=== PATIENT | male | born 1960 | race Caucasian/White ===

== ENCOUNTER 2021-12-21 20:35 | Inpatient (IN) ==
[2021-12-21] MEDS ORDERED: PANTOPRAZOLE 40 MG VIAL IV STA (21:12)
[2021-12-21] MEDS ORDERED: ONDANSETRON 4 MG/2 ML VIAL IV STA (21:12)
[2021-12-21] MEDS ORDERED: SODIUM CHLORIDE 0.9% 500 ML IV STA (21:12)
[2021-12-21 21:31] LABS: Basophils # 0.1 10*3/uL (0.0-0.2); Basophils % 0.6 % (0.0-0.8); Eosinophils # 0.1 10*3/uL (0.0-0.87); Eosinophils % 1.5 % (0.00-10.9); Hematocrit 39.6 VOL% (42.0-52.0); Hemoglobin 13.5 GM/DL (14.0-18.0); Immature Granulocytes % 0.6 %; Immature Granulocytes Absolute 0.05 #; Lymphocytes # 1.2 10*3/uL (1.4-4.0); Lymphocytes % 15.4 % (21.2-54.2); Mean Corpuscular HGB Conc 34.1 GM/DL (32-36); Mean Corpuscular Volume 85.7 FL (87-102); Mean Platelet Volume 9.5 FL (9.6-12.0); Monocytes # 0.9 10*3/uL (0.11-0.8); Monocytes % 11.8 % (1.7-12.7); Neutrophils % 70.1 % (38.7-73.9); Platelet Count 280 T/CUMM (130-400); Red Blood Count 4.62 MC/CUMM (3.8-5.5); Red Cell Distribution Width 13.2 % (9.3-17.3); White Blood Count 7.9 T/CUMM (4-12)
[2021-12-21 21:54] LABS: Alanine Aminotransferase 24 U/L (16-61); Alkaline Phosphatase 95 U/L (45-117); Amylase 50 U/L (25-115); Aspartate Amino Transferase 18 U/L (0-37); Blood Urea Nitrogen 23 MG/DL (7-18); Calcium 8.7 MG/DL (8.5-10.1); Carbon Dioxide 25 MMOL/L (21-32); Chloride 107 MMOL/L (98-107); Glucose 115 MG/DL (74-106); Osmolality,Calculated 283.4 MOS/KG (273-304); Potassium 4.2 MMOL/L (3.5-5.1); Sodium 140 MMOL/L (136-145); Total Protein 6.1 G/DL (6.4-8.2)
[2021-12-21] MEDS ORDERED: LACTATED RINGERS 1,000 ML IV ONE (22:31)
[2021-12-21 22:36] LABS: Bacteria,Urine Occasional /HPF (Few); Hyaline Casts,Urine 4 /LPF (0-3); Mucus,Urine Few /LPF (Occasional); RBC,Urine <1 /HPF (0-4)
[2021-12-21 22:38] LABS: Bilirubin,Urine Small mg/dL (Negative); Blood, Urine Negative (Negative); Glucose,Urine (UA) Trace mg/dL (Negative); Ketones,Urine Negative (Negative); Nitrite,Urine Negative (Negative); Protein,Urine 100 mg/dL (Negative); Urine Appearance Clear (Clear); Urine Color Yellow (Yellow); Urine Specific Gravity > 1.030 (1.001-1.035); Urine Urobilinogen 0.2 eU/dL (<2.0); Urine pH 5.5 (4.5-8.0)
[2021-12-22 00:09] LABS: Basophils % 0.5 % (0.0-0.8); Eosinophils # 0.1 10*3/uL (0.0-0.87); Eosinophils % 1.4 % (0.00-10.9); Hematocrit 30.6 VOL% (42.0-52.0); Hemoglobin 10.2 GM/DL (14.0-18.0); Immature Granulocytes % 0.7 %; Immature Granulocytes Absolute 0.04 #; Lymphocytes # 0.8 10*3/uL (1.4-4.0); Lymphocytes % 13.5 % (21.2-54.2); Mean Corpuscular HGB Conc 33.3 GM/DL (32-36); Mean Corpuscular Volume 86.4 FL (87-102); Mean Platelet Volume 9.7 FL (9.6-12.0); Monocytes # 0.7 10*3/uL (0.11-0.8); Monocytes % 12.3 % (1.7-12.7); Neutrophils % 71.6 % (38.7-73.9); Platelet Count 207 T/CUMM (130-400); Red Blood Count 3.54 MC/CUMM (3.8-5.5); Red Cell Distribution Width 13.2 % (9.3-17.3); White Blood Count 5.6 T/CUMM (4-12)
[2021-12-22] MEDS ORDERED: diphenhydrAMINE CAP 25 MG CAPSULE PO PRN (00:15)
[2021-12-22] MEDS ORDERED: hydrALAZINE 20 MG/1 ML VIAL IV PRN (00:15)
[2021-12-22] MEDS ORDERED: ZALEPLON 5 MG CAPSULE PO PRN (00:15)
[2021-12-22] MEDS ORDERED: NICOTINE 21 MG/24 HR PATCH TRANSDERM PRN (00:15)
[2021-12-22] MEDS ORDERED: GLUCAGON 1 MG VIAL IM PRN (00:15)
[2021-12-22] MEDS ORDERED: DEXTROSE 10% 250 ML BAG IV PRN (00:15)
[2021-12-22] MEDS: PANTOPRAZOLE INJ 200 MG in SODIUM CHLORIDE 0.9% 250 ML IV SCH ×2 (00:43→15:36)
[2021-12-22] MEDS: ONDANSETRON 4 MG/2 ML VIAL IV PRN ×2 (03:06→17:28)
[2021-12-22] MEDS: SODIUM CHLORIDE 0.9% 1,000 ML IV SCH ×2 (03:45→15:45)
[2021-12-22 04:38] LABS: Basophils % 0.8 % (0.0-0.8); Eosinophils # 0.1 10*3/uL (0.0-0.87); Eosinophils % 1.6 % (0.00-10.9); Hematocrit 30.4 VOL% (42.0-52.0); Hemoglobin 10.1 GM/DL (14.0-18.0); Immature Granulocytes % 0.4 %; Immature Granulocytes Absolute 0.02 #; Lymphocytes # 1.4 10*3/uL (1.4-4.0); Lymphocytes % 27.2 % (21.2-54.2); Mean Corpuscular HGB Conc 33.2 GM/DL (32-36); Mean Corpuscular Volume 88.1 FL (87-102); Mean Platelet Volume 10.1 FL (9.6-12.0); Monocytes # 0.6 10*3/uL (0.11-0.8); Monocytes % 12.3 % (1.7-12.7); Neutrophils % 57.7 % (38.7-73.9); Platelet Count 298 T/CUMM (130-400); Red Blood Count 3.45 MC/CUMM (3.8-5.5); Red Cell Distribution Width 13.4 % (9.3-17.3); White Blood Count 5.1 T/CUMM (4-12)
[2021-12-22 05:00] LABS: Calcium 7.7 MG/DL (8.5-10.1); Osmolality,Calculated 285.5 MOS/KG (273-304); Potassium 4.9 MMOL/L (3.5-5.1)
[2021-12-22 05:47] LABS: Sedimentation Rate-Westergren 29 MM/HR (0-20)
[2021-12-22] MEDS ORDERED: SODIUM CHLORIDE 0.9% 1,000 ML IV ONE (06:17)
[2021-12-22] MEDS ORDERED: LACTATED RINGERS 1,000 ML IV SCH (07:37)
[2021-12-22] MEDS ORDERED: LIDOCAINE 2% 5 ML VIAL ONE (08:24)
[2021-12-22] MEDS ORDERED: propofoL 200 MG/20 ML VIAL IV ONE (08:24)
[2021-12-22] MEDS ORDERED: SEVOFLURANE 1 UNIT/15 MINUTE INH ONE (09:02)
[2021-12-22] MEDS ORDERED: PHENYLEPHRINE 1 MG/10 ML SYRINGE IV ONE (09:02)
[2021-12-22] MEDS ORDERED: LABETALOL 20 MG/4 ML SYRINGE IV ONE (09:08)
[2021-12-22] MEDS ORDERED: SODIUM CHLORIDE 0.9% 1,000 ML IV PRN ×3 (10:26→15:42)
[2021-12-22] MEDS ORDERED: MORPHINE 2 MG/1 ML SYRINGE IV ONE (15:15)
[2021-12-22 15:36] LABS: Basophils % 0.1 % (0.0-0.8); Eosinophils % 0.3 % (0.00-10.9); Immature Granulocytes % 1.3 %; Immature Granulocytes Absolute 0.09 #; Lymphocytes # 2.2 10*3/uL (1.4-4.0); Mean Corpuscular Volume 90.5 FL (87-102); Mean Platelet Volume 10.1 FL (9.6-12.0); Monocytes # 0.5 10*3/uL (0.11-0.8); Monocytes % 6.7 % (1.7-12.7); Neutrophils % 59.6 % (38.7-73.9); Platelet Count 187 T/CUMM (130-400); Red Blood Count 1.69 MC/CUMM (3.8-5.5); Red Cell Distribution Width 13.5 % (9.3-17.3); White Blood Count 6.8 T/CUMM (4-12)
[2021-12-22 15:40] LABS: Hematocrit 15.3 VOL% (42.0-52.0); Hemoglobin 4.9 GM/DL (14.0-18.0)
[2021-12-22] MEDS: HYDROCORTISONE 100 MG VIAL IV SCH ×2 (15:47→21:56)
[2021-12-22 15:59] LABS: Alanine Aminotransferase 16 U/L (16-61); Albumin 1.4 G/DL (3.4-5.0); Alkaline Phosphatase 41 U/L (45-117); Aspartate Amino Transferase 18 U/L (0-37); Bilirubin,Total < 0.39 MG/DL (0.20-1.00); Blood Urea Nitrogen 42 MG/DL (7-18); Calcium 6.7 MG/DL (8.5-10.1); Carbon Dioxide 17 MMOL/L (21-32); Chloride 112 MMOL/L (98-107); Glucose 325 MG/DL (74-106); Osmolality,Calculated 304.3 MOS/KG (273-304); Potassium 4.4 MMOL/L (3.5-5.1); Sodium 141 MMOL/L (136-145); Total Protein 3.1 G/DL (6.4-8.2)
[2021-12-22] MEDS ORDERED: DIGOXIN 0.5 MG/2 ML AMP IV ONE ×2 (17:42→18:00)
[2021-12-22] MEDS ORDERED: METOPROLOL TARTRATE 5 MG/5 ML VIAL IV ONE (19:30)
[2021-12-22] MEDS ORDERED: CALCIUM GLUCONATE RIDER 1,000 MG/50 ML PREMIX IV ONE (19:30)
[2021-12-22 20:47] LABS: Hematocrit 34.4 VOL% (42.0-52.0); Hemoglobin 12.1 GM/DL (14.0-18.0)
[2021-12-23 00:35] LABS: Hematocrit 30.1 VOL% (42.0-52.0); Hemoglobin 10.4 GM/DL (14.0-18.0)
[2021-12-23] MEDS: SODIUM CHLORIDE 0.9% 1,000 ML IV SCH ×3 (02:23→23:49)
[2021-12-23] MEDS: PANTOPRAZOLE INJ 200 MG in SODIUM CHLORIDE 0.9% 250 ML IV SCH ×2 (02:58→23:49)
[2021-12-23 04:39] LABS: Basophils % 0.1 % (0.0-0.8); Hematocrit 30.2 VOL% (42.0-52.0); Hemoglobin 10.1 GM/DL (14.0-18.0); Immature Granulocytes Absolute 0.11 #; Lymphocytes % 8.9 % (21.2-54.2); Mean Corpuscular HGB Conc 33.4 GM/DL (32-36); Mean Corpuscular Volume 89.3 FL (87-102); Mean Platelet Volume 10.2 FL (9.6-12.0); Monocytes # 0.5 10*3/uL (0.11-0.8); Platelet Count 148 T/CUMM (130-400); Red Blood Count 3.38 MC/CUMM (3.8-5.5); Red Cell Distribution Width 14.6 % (9.3-17.3); White Blood Count 11.5 T/CUMM (4-12)
[2021-12-23 05:00] LABS: Calcium 7.3 MG/DL (8.5-10.1); Osmolality,Calculated 287.5 MOS/KG (273-304); Potassium 5.1 MMOL/L (3.5-5.1)
[2021-12-23] MEDS: HYDROCORTISONE 100 MG VIAL IV SCH ×4 (05:25→22:51)
[2021-12-23] MEDS ORDERED: MAGNESIUM SULF RIDER 2 GM/50 ML PREMIX IV ONE (07:53)
[2021-12-23] MEDS ORDERED: fentaNYL 100 MCG/2 ML VIAL IV ONE (08:15)
[2021-12-23] MEDS ORDERED: MIDAZOLAM 2 MG/2 ML VIAL IV ONE (08:15)
[2021-12-23] MEDS ORDERED: DIAZEPAM 5 MG TABLET PO ONE (08:15)
[2021-12-23] MEDS ORDERED: VANCOMYCIN INJ 1,000 MG in SODIUM CHLORIDE 0.9% 250 ML IV ONE (08:15)
[2021-12-23] MEDS ORDERED: SODIUM CHLORIDE 0.45% 1,000 ML IV SCH (08:30)
[2021-12-23] MEDS ORDERED: HEPARIN/NACL 0.9% 2 UNITS/ML 6,000 UNIT/3,000 ML BAG IV ONE (09:12)
[2021-12-23] MEDS ORDERED: DEXMEDETOMIDINE 200 MCG/2 ML VIAL ONE (09:20)
[2021-12-23] MEDS ORDERED: MIDAZOLAM 2 MG/2 ML VIAL ONE (12:07)
[2021-12-23] MEDS ORDERED: fentaNYL 100 MCG/2 ML VIAL ONE (12:07)
[2021-12-23] MEDS: MORPHINE 2 MG/1 ML SYRINGE IV PRN (12:52)
[2021-12-23 14:53] LABS: Hematocrit 26.9 VOL% (42.0-52.0); Hemoglobin 9.3 GM/DL (14.0-18.0)
[2021-12-23 17:05] LABS: Folate 6.27 NG/ML (5.38-24.0); Vitamin B12 275 PG/ML (211-911)
[2021-12-23 19:49] LABS: Hematocrit 25.8 VOL% (42.0-52.0); Hemoglobin 8.9 GM/DL (14.0-18.0)
[2021-12-24 02:18] LABS: Basophils % 0.1 % (0.0-0.8); Hematocrit 24.6 VOL% (42.0-52.0); Hemoglobin 8.4 GM/DL (14.0-18.0); Immature Granulocytes % 0.7 %; Immature Granulocytes Absolute 0.07 #; Lymphocytes # 0.8 10*3/uL (1.4-4.0); Lymphocytes % 7.2 % (21.2-54.2); Mean Corpuscular HGB Conc 34.1 GM/DL (32-36); Mean Corpuscular Volume 87.2 FL (87-102); Mean Platelet Volume 9.8 FL (9.6-12.0); Monocytes # 0.3 10*3/uL (0.11-0.8); Monocytes % 2.6 % (1.7-12.7); Neutrophils % 89.4 % (38.7-73.9); Platelet Count 137 T/CUMM (130-400); Red Blood Count 2.82 MC/CUMM (3.8-5.5); Red Cell Distribution Width 14.4 % (9.3-17.3); White Blood Count 10.4 T/CUMM (4-12)
[2021-12-24 02:33] LABS: Calcium 7.4 MG/DL (8.5-10.1); Osmolality,Calculated 288.3 MOS/KG (273-304); Potassium 4.3 MMOL/L (3.5-5.1)
[2021-12-24] MEDS: HYDROCORTISONE 100 MG VIAL IV SCH ×4 (05:05→21:31)
[2021-12-24] MEDS ORDERED: SODIUM CHLORIDE 0.9% 1,000 ML IV PRN (06:56)
[2021-12-24 07:49] LABS: Hematocrit 22.1 VOL% (42.0-52.0); Hemoglobin 7.4 GM/DL (14.0-18.0)
[2021-12-24] MEDS ORDERED: ETOMIDATE 20 MG/10 ML VIAL IV ONE (08:59)
[2021-12-24] MEDS ORDERED: LACTATED RINGERS 1,000 ML IV ONE ×2 (09:00→10:00)
[2021-12-24] MEDS ORDERED: MIDAZOLAM 2 MG/2 ML VIAL IV ONE (09:00)
[2021-12-24] MEDS ORDERED: SUCCINYLCHOLINE 200 MG/10 ML VIAL ONE (09:00)
[2021-12-24] MEDS: ETOMIDATE 20 MG/10 ML VIAL IV ONE (09:01)
[2021-12-24] MEDS: NOREPINEPHRINE 8 MG in SODIUM CHLORIDE 0.9% 242 ML IV PRN ×2 (09:02→10:15)
[2021-12-24] MEDS ORDERED: NOREPINEPHRINE 4 MG/4 ML VIAL IV ONE (09:11)
[2021-12-24] MEDS: MIDAZOLAM 2 MG/2 ML VIAL IV ONE ×2 (09:15→14:56)
[2021-12-24] MEDS ORDERED: LACTATED RINGERS 500 ML IV ONE ×2 (09:20→23:20)
[2021-12-24] MEDS ORDERED: MIDAZOLAM 2 MG/2 ML VIAL ONE ×3 (09:23→13:34)
[2021-12-24] MEDS: MIDAZOLAM 100 MG in SODIUM CHLORIDE 0.9% 80 ML IV PRN ×2 (09:25→20:08)
[2021-12-24] MEDS ORDERED: LEVOFLOXACIN INJ 500 MG/100 ML PREMIX IV ONE (09:41)
[2021-12-24] MEDS ORDERED: metroNIDAZOLE INJ 500 MG/100 ML PREMIX IV ONE (09:41)
[2021-12-24] MEDS ORDERED: SUCCINYLCHOLINE 200 MG/10 ML VIAL IV ONE (10:21)
[2021-12-24 10:45] LABS: ABG Base Excess -5.9 MMOL/L (-2.5-2.5); ABG HCO3 19.6 MMOL/L (20-26); ABG Oxygen Saturation 99.7 % (95-100); ABG PCO2 33.6 MM HG (35-48); ABG PH 7.359 (7.35-7.45); ABG TCO2 17.8 MMOL/L (23-27)
[2021-12-24 10:46] LABS: Basophils % 0.1 % (0.0-0.8); Hematocrit 22.5 VOL% (42.0-52.0); Hemoglobin 7.8 GM/DL (14.0-18.0); Immature Granulocytes % 1.8 %; Immature Granulocytes Absolute 0.24 #; Lymphocytes # 0.5 10*3/uL (1.4-4.0); Lymphocytes % 3.8 % (21.2-54.2); Mean Corpuscular HGB Conc 34.7 GM/DL (32-36); Mean Corpuscular Volume 89.6 FL (87-102); Mean Platelet Volume 10.2 FL (9.6-12.0); Monocytes # 0.5 10*3/uL (0.11-0.8); Monocytes % 3.5 % (1.7-12.7); Neutrophils % 90.8 % (38.7-73.9); Platelet Count 104 T/CUMM (130-400); Red Blood Count 2.51 MC/CUMM (3.8-5.5); Red Cell Distribution Width 14.5 % (9.3-17.3); White Blood Count 13.1 T/CUMM (4-12)
[2021-12-24] MEDS ORDERED: VECURONIUM 10 MG VIAL IV ONE (10:48)
[2021-12-24 11:01] LABS: Calcium 6.3 MG/DL (8.5-10.1); Potassium 4.8 MMOL/L (3.5-5.1)
[2021-12-24 11:05] LABS: Lymphocytes 3 % (20-55); Total Cells Counted 100
[2021-12-24 11:06] LABS: Burr Cells Slight; Microcytosis 1+; Platelet Estimate Decreased
[2021-12-24] MEDS ORDERED: fentaNYL 250 MCG/5 ML VIAL ONE (11:19)
[2021-12-24] MEDS: SODIUM CHLORIDE 0.9% 1,000 ML IV SCH ×2 (11:26→16:10)
[2021-12-24] MEDS ORDERED: PHENYLEPHRINE 10 MG/1 ML VIAL IV ONE (11:31)
[2021-12-24 11:34] LABS: ABG Base Excess -4.2 MMOL/L (-2.5-2.5); ABG HCO3 20.9 MMOL/L (20-26); ABG Oxygen Saturation 99.2 % (95-100); ABG PCO2 35.5 MM HG (35-48); ABG PH 7.371 (7.35-7.45); ABG TCO2 19.3 MMOL/L (23-27); Glucose Heart Surgery 184 MG/DL (74-106); Hematocrit Heart Surgery 24.3 PERCENT (42-52); Hemoglobin Heart Surgery 7.8 G/DL (14.0-18.0); Ionized Calcium Arterial 1.07 MMOL/L (1.21-1.46); PCO2 Patient Temp Arterial 35.5 MMHG; PH Patient Temp Arterial 7.371; Patient Temperature 37 CELCIUS; Potassium Heart/CVR 4.6 MMOL/L (3.5-5.1); Sodium Heart/CVR 135 MMOL/L (135-145)
[2021-12-24] MEDS ORDERED: ROCURONIUM 50 MG/5 ML VIAL IV ONE (12:31)
[2021-12-24] MEDS ORDERED: SEVOFLURANE 1 UNIT/15 MINUTE INH ONE (13:28)
[2021-12-24 14:11] LABS: Hematocrit 32.5 VOL% (42.0-52.0); Hemoglobin 11.1 GM/DL (14.0-18.0)
[2021-12-24 14:15] LABS: Amorphous Crystals,Urine Occasional /HPF (Few); Mucus,Urine Occasional /LPF (Occasional); Squamous Epithelial Cell,Urine Occasional /HPF (0-10)
[2021-12-24 14:16] LABS: Urine Appearance Clear (Clear); Urine Color Yellow (Yellow); Urine pH 5.5 (4.5-8.0)
[2021-12-24 14:17] LABS: Bilirubin,Urine Negative (Negative); Blood, Urine Trace mg/dL (Negative); Glucose,Urine (UA) 500 mg/dL (Negative); Ketones,Urine Negative (Negative); Nitrite,Urine Negative (Negative); Protein,Urine Negative (Negative); Urine Specific Gravity 1.025 (1.001-1.035); Urine Urobilinogen 0.2 eU/dL (<2.0)
[2021-12-24] MEDS: LACTATED RINGERS 1,000 ML IV SCH (15:45)
[2021-12-24] MEDS ORDERED: CALCIUM GLUCONATE RIDER 2,000 MG/100 ML PREMIX IV ONE ×2 (16:00→20:00)
[2021-12-24 19:09] LABS: Albumin 1.4 G/DL (3.4-5.0); Bilirubin,Total 0.9 MG/DL (0.20-1.00); Calcium 6.3 MG/DL (8.5-10.1); Osmolality,Calculated 294.1 MOS/KG (273-304); Total Protein 2.9 G/DL (6.4-8.2)
[2021-12-24 19:25] LABS: INR 1.1; PT Patient Result 12.4 SECS (10.5-12.0)
[2021-12-24 21:28] LABS: Hematocrit 37.1 VOL% (42.0-52.0); Hemoglobin 12.8 GM/DL (14.0-18.0)
[2021-12-25] MEDS ORDERED: LACTATED RINGERS 1,000 ML IV ONE (01:26)
[2021-12-25] MEDS ORDERED: PHENYLEPHRINE DRIP 40 MG/250 ML PREMIX IV ONE (01:28)
[2021-12-25] MEDS: PHENYLEPHRINE DRIP 40 MG/250 ML PREMIX IV PRN ×4 (01:35→10:17)
[2021-12-25] MEDS: MORPHINE 2 MG/1 ML SYRINGE IV PRN (01:42)
[2021-12-25 01:43] LABS: Hematocrit 32.9 VOL% (42.0-52.0); Hemoglobin 11.4 GM/DL (14.0-18.0)
[2021-12-25 01:47] LABS: ABG Base Excess -12.8 MMOL/L (-2.5-2.5); ABG HCO3 14.5 MMOL/L (20-26); ABG Oxygen Saturation 96.9 % (95-100); ABG PCO2 33.6 MM HG (35-48); ABG PH 7.228 (7.35-7.45); ABG TCO2 12.8 MMOL/L (23-27)
[2021-12-25] MEDS: SODIUM CHLORIDE 0.9% 1,000 ML IV SCH (01:48)
[2021-12-25] MEDS ORDERED: SODIUM BICARBONATE 50 MEQ/50 ML VIAL IV ONE ×5 (01:50→12:00)
[2021-12-25] MEDS: fentaNYL INJ 1,250 MCG in SODIUM CHLORIDE 0.9% 225 ML IV PRN ×2 (01:50→16:20)
[2021-12-25] MEDS: LACTATED RINGERS 1,000 ML IV SCH ×7 (02:51→22:29)
[2021-12-25 04:18] LABS: Basophils % 0.2 % (0.0-0.8); Eosinophils # 0.1 10*3/uL (0.0-0.87); Eosinophils % 0.5 % (0.00-10.9); Hematocrit 32.3 VOL% (42.0-52.0); Immature Granulocytes % 1.2 %; Immature Granulocytes Absolute 0.15 #; Lymphocytes # 2.2 10*3/uL (1.4-4.0); Lymphocytes % 16.5 % (21.2-54.2); Mean Corpuscular HGB Conc 34.1 GM/DL (32-36); Mean Platelet Volume 12.1 FL (9.6-12.0); Monocytes # 0.6 10*3/uL (0.11-0.8); Monocytes % 4.6 % (1.7-12.7); Platelet Count 119 T/CUMM (130-400); Red Blood Count 3.59 MC/CUMM (3.8-5.5); Red Cell Distribution Width 14.7 % (9.3-17.3)
[2021-12-25 04:28] LABS: Calcium 7.1 MG/DL (8.5-10.1); Osmolality,Calculated 296.7 MOS/KG (273-304); Potassium 5.2 MMOL/L (3.5-5.1)
[2021-12-25 04:34] LABS: ABG HCO3 16.4 MMOL/L (20-26); ABG Oxygen Saturation 93.1 % (95-100); ABG PCO2 43.3 MM HG (35-48); ABG PH 7.216 (7.35-7.45); ABG PO2 82.2 MM HG (80-95); ABG TCO2 16.2 MMOL/L (23-27); Band Neutrophils 6 % (0-10); Lymphocytes 17 % (20-55); Platelet Estimate Normal; Total Cells Counted 100
[2021-12-25] MEDS ORDERED: MAGNESIUM SULF RIDER 4 GM/100 ML PREMIX IV PRN (04:35)
[2021-12-25] MEDS ORDERED: SODIUM BICARBONATE 50 MEQ/50 ML SYRINGE IV ONE (04:37)
[2021-12-25] MEDS: HYDROCORTISONE 100 MG VIAL IV SCH ×3 (04:56→22:28)
[2021-12-25] MEDS ORDERED: INSULIN REGULAR 10 UNIT, CALCIUM GLUCONATE 1,000 MG in DEXTROSE 10% 250 ML IV ONE (05:00)
[2021-12-25] MEDS ORDERED: CALCIUM GLUCONATE RIDER 2,000 MG/100 ML PREMIX IV ONE (05:03)
[2021-12-25] MEDS ORDERED: HYDROCORTISONE 100 MG VIAL IV ONE ×2 (05:13→08:00)
[2021-12-25] MEDS: MAGNESIUM SULF RIDER 2 GM/50 ML PREMIX IV PRN (05:21)
[2021-12-25] MEDS: MIDAZOLAM 100 MG in SODIUM CHLORIDE 0.9% 80 ML IV PRN (05:25)
[2021-12-25] MEDS ORDERED: ALBUMIN 5% 25 GM/500 ML VIAL IV ONE ×2 (05:54→06:51)
[2021-12-25] MEDS: SODIUM BICARB INJ 150 MEQ in DEXTROSE 5% 850 ML IV SCH ×3 (05:55→19:27)
[2021-12-25 06:01] LABS: INR 1.5; PT Patient Result 15.8 SECS (10.5-12.0)
[2021-12-25] MEDS ORDERED: SODIUM CHLORIDE 0.9% 1,000 ML IV PRN ×4 (07:44→23:02)
[2021-12-25] MEDS: VASOPRESSIN 100 UNITS in SODIUM CHLORIDE 0.9% 95 ML IV SCH ×2 (08:30→16:18)
[2021-12-25 08:48] LABS: ABG Base Excess -11.6 MMOL/L (-2.5-2.5); ABG HCO3 15.2 MMOL/L (20-26); ABG Oxygen Saturation 98.8 % (95-100); ABG PCO2 34.6 MM HG (35-48); ABG PH 7.242 (7.35-7.45); ABG TCO2 14.1 MMOL/L (23-27); Glucose Heart Surgery 163 MG/DL (74-106); Hematocrit Heart Surgery 24.7 PERCENT (42-52); Hemoglobin Heart Surgery 7.9 G/DL (14.0-18.0); Potassium Heart/CVR 3.9 MMOL/L (3.5-5.1)
[2021-12-25 08:51] LABS: INR 1.7; PT Patient Result 18.1 SECS (10.5-12.0)
[2021-12-25 08:53] LABS: Partial Thromboplastin Time 54.1 SECS (23.7-32.9)
[2021-12-25 09:00] LABS: Basophils % 0.2 % (0.0-0.8); Hematocrit 24.1 VOL% (42.0-52.0); Hemoglobin 8.1 GM/DL (14.0-18.0); Immature Granulocytes % 1.4 %; Immature Granulocytes Absolute 0.13 #; Lymphocytes % 10.9 % (21.2-54.2); Mean Corpuscular HGB Conc 33.6 GM/DL (32-36); Mean Corpuscular Volume 92.7 FL (87-102); Mean Platelet Volume 12.2 FL (9.6-12.0); Monocytes # 0.4 10*3/uL (0.11-0.8); NRBC # 0.15 10*3/uL; Neutrophils % 83.5 % (38.7-73.9); Red Cell Distribution Width 14.9 % (9.3-17.3); White Blood Count 9.3 T/CUMM (4-12)
[2021-12-25 09:02] LABS: Platelet Count 81 T/CUMM (130-400)
[2021-12-25 09:10] LABS: Band Neutrophils 10 % (0-10); Lymphocytes 14 % (20-55); Nucleated Red Blood Cells 3 (0-5); Platelet Estimate Decreased; Total Cells Counted 100
[2021-12-25 09:14] LABS: Albumin 2.1 G/DL (3.4-5.0); Bilirubin,Total 0.6 MG/DL (0.20-1.00); Calcium 7.3 MG/DL (8.5-10.1); Osmolality,Calculated 300.6 MOS/KG (273-304); Potassium 4.2 MMOL/L (3.5-5.1); Total Protein 3.2 G/DL (6.4-8.2)
[2021-12-25] MEDS: AZITHROMYCIN INJ 500 MG in SODIUM CHLORIDE 0.9% 250 ML IV SCH (09:16)
[2021-12-25] MEDS: PANTOPRAZOLE 40 MG VIAL IV SCH ×2 (09:29→22:28)
[2021-12-25] MEDS ORDERED: SODIUM CHLORIDE 0.9% IV PRN (10:04)
[2021-12-25] MEDS ORDERED: PHENYLEPHRINE IV PRN (10:04)
[2021-12-25] MEDS ORDERED: PHENYLEPHRINE INJ 160 MG in SODIUM CHLORIDE 0.9% 234 ML IV PRN (10:30)
[2021-12-25] MEDS ORDERED: MEROPENEM 500 MG in SODIUM CHLORIDE 0.9% 100 ML IV SCH (11:00)
[2021-12-25] MEDS: LINEZOLID INJ 600 MG/300 ML PREMIX IV SCH ×2 (11:52→23:43)
[2021-12-25] MEDS: ALBUMIN 25% 25 GM/100 ML VIAL IV SCH ×2 (14:28→22:26)
[2021-12-25] MEDS: ALBUTEROL/IPRATROPIUM 3 ML NEB RESP TX SCH ×3 (15:24→23:45)
[2021-12-25 16:38] LABS: Hematocrit 23.8 VOL% (42.0-52.0); Hemoglobin 8.1 GM/DL (14.0-18.0)
[2021-12-25] MEDS: MEROPENEM 500 MG in SODIUM CHLORIDE 0.9% 100 ML IV SCH (18:00)
[2021-12-25 19:10] LABS: Hematocrit 22.2 VOL% (42.0-52.0); Hemoglobin 7.7 GM/DL (14.0-18.0)
[2021-12-25] MEDS ORDERED: VASOPRESSIN 100 UNITS in SODIUM CHLORIDE 0.9% 95 ML IV SCH (20:00)
[2021-12-26] MEDS: MEROPENEM 500 MG in SODIUM CHLORIDE 0.9% 100 ML IV SCH ×3 (01:36→19:00)
[2021-12-26] MEDS: VASOPRESSIN 100 UNITS in SODIUM CHLORIDE 0.9% 95 ML IV SCH (01:40)
[2021-12-26] MEDS: SODIUM BICARB INJ 150 MEQ in DEXTROSE 5% 850 ML IV SCH ×5 (02:10→22:50)
[2021-12-26] MEDS: MIDAZOLAM 100 MG in SODIUM CHLORIDE 0.9% 80 ML IV PRN ×2 (02:33→13:26)
[2021-12-26] MEDS ORDERED: SODIUM CHLORIDE 0.9% 1,000 ML IV ONE (02:55)
[2021-12-26 03:25] LABS: ABG HCO3 20.3 MMOL/L (20-26); ABG Oxygen Saturation 99.5 % (95-100); ABG PCO2 24.8 MM HG (35-48); ABG PH 7.461 (7.35-7.45); ABG TCO2 16.1 MMOL/L (23-27)
[2021-12-26 03:33] LABS: Basophils # 0.2 10*3/uL (0.0-0.2); Basophils % 0.9 % (0.0-0.8); Immature Granulocytes % 7.9 %; Immature Granulocytes Absolute 1.35 #; Lymphocytes # 1.6 10*3/uL (1.4-4.0); Lymphocytes % 9.2 % (21.2-54.2); Mean Corpuscular HGB Conc 34.5 GM/DL (32-36); Mean Corpuscular Volume 87.3 FL (87-102); Mean Platelet Volume 13.7 FL (9.6-12.0); Monocytes # 0.7 10*3/uL (0.11-0.8); Monocytes % 3.8 % (1.7-12.7); NRBC # 1.88 10*3/uL; Neutrophils % 78.2 % (38.7-73.9); Red Cell Distribution Width 15.1 % (9.3-17.3)
[2021-12-26 03:36] LABS: Hematocrit 27.5 VOL% (42.0-52.0); Hemoglobin 9.5 GM/DL (14.0-18.0); Platelet Count 52 T/CUMM (130-400); Red Blood Count 3.15 MC/CUMM (3.8-5.5)
[2021-12-26 03:40] LABS: Band Neutrophils 9 % (0-10); Hypochromia Slight; Lymphocytes 16 % (20-55); Microcytosis Slight; Myelocytes 1 %; Nucleated Red Blood Cells 11 (0-5); Platelet Estimate Decreased; Total Cells Counted 100
[2021-12-26 04:14] LABS: Albumin 2.2 G/DL (3.4-5.0); Bilirubin,Total 1.9 MG/DL (0.20-1.00); Calcium 6.5 MG/DL (8.5-10.1); Osmolality,Calculated 307.7 MOS/KG (273-304); Total Protein 3.3 G/DL (6.4-8.2)
[2021-12-26] MEDS ORDERED: POTASSIUM CHLORIDE RIDER 20 MEQ/100 ML PREMIX IV ONE (05:14)
[2021-12-26] MEDS: HYDROCORTISONE 100 MG VIAL IV SCH ×3 (05:30→21:02)
[2021-12-26] MEDS: ALBUMIN 25% 25 GM/100 ML VIAL IV SCH ×3 (05:30→21:00)
[2021-12-26] MEDS: ALBUTEROL/IPRATROPIUM 3 ML NEB RESP TX SCH ×3 (07:19→19:40)
[2021-12-26] MEDS: fentaNYL INJ 1,250 MCG in SODIUM CHLORIDE 0.9% 225 ML IV PRN (07:54)
[2021-12-26] MEDS: MORPHINE 2 MG/1 ML SYRINGE IV PRN (07:54)
[2021-12-26] MEDS ORDERED: CALCIUM GLUCONATE RIDER 2,000 MG/100 ML PREMIX IV ONE (08:00)
[2021-12-26] MEDS: PANTOPRAZOLE 40 MG VIAL IV SCH ×2 (08:11→20:31)
[2021-12-26] MEDS: AZITHROMYCIN INJ 500 MG in SODIUM CHLORIDE 0.9% 250 ML IV SCH (08:12)
[2021-12-26] MEDS ORDERED: FUROSEMIDE 40 MG/4 ML VIAL IV ONE (09:04)
[2021-12-26] MEDS ORDERED: LACTATED RINGERS 500 ML IV ONE (09:30)
[2021-12-26] MEDS: CEFTAROLINE 300 MG in SODIUM CHLORIDE 0.9% 100 ML IV SCH (12:55)
[2021-12-27] MEDS: ALBUTEROL/IPRATROPIUM 3 ML NEB RESP TX SCH ×4 (00:30→18:51)
[2021-12-27] MEDS: CEFTAROLINE 300 MG in SODIUM CHLORIDE 0.9% 100 ML IV SCH ×2 (00:38→12:26)
[2021-12-27] MEDS: SODIUM BICARB INJ 150 MEQ in DEXTROSE 5% 850 ML IV SCH ×4 (00:40→07:42)
[2021-12-27] MEDS: VASOPRESSIN 100 UNITS in SODIUM CHLORIDE 0.9% 95 ML IV SCH (01:25)
[2021-12-27] MEDS: MEROPENEM 500 MG in SODIUM CHLORIDE 0.9% 100 ML IV SCH (02:00)
[2021-12-27] MEDS: fentaNYL INJ 1,250 MCG in SODIUM CHLORIDE 0.9% 225 ML IV PRN (02:07)
[2021-12-27] MEDS: MIDAZOLAM 100 MG in SODIUM CHLORIDE 0.9% 80 ML IV PRN (02:11)
[2021-12-27] MEDS: MORPHINE 2 MG/1 ML SYRINGE IV PRN (02:49)
[2021-12-27 04:01] LABS: ABG Base Excess 7.8 MMOL/L (-2.5-2.5); ABG HCO3 31.6 MMOL/L (20-26); ABG Oxygen Saturation 99.7 % (95-100); ABG PCO2 21.6 MM HG (35-48); ABG TCO2 24.9 MMOL/L (23-27)
[2021-12-27 04:15] LABS: Basophils % 0.1 % (0.0-0.8); Eosinophils % 0.1 % (0.00-10.9); Hematocrit 26.4 VOL% (42.0-52.0); Hemoglobin 9.7 GM/DL (14.0-18.0); Immature Granulocytes % 13.5 %; Immature Granulocytes Absolute 3.37 #; Lymphocytes # 1.2 10*3/uL (1.4-4.0); Lymphocytes % 4.7 % (21.2-54.2); Mean Corpuscular HGB Conc 36.7 GM/DL (32-36); Mean Corpuscular Volume 83.3 FL (87-102); Mean Platelet Volume 13.4 FL (9.6-12.0); Monocytes # 1.4 10*3/uL (0.11-0.8); Monocytes % 5.6 % (1.7-12.7); NRBC # 10.04 10*3/uL; Red Blood Count 3.17 MC/CUMM (3.8-5.5); Red Cell Distribution Width 14.7 % (9.3-17.3)
[2021-12-27 04:17] LABS: INR 1.7; PT Patient Result 18.3 SECS (10.5-12.0)
[2021-12-27 04:19] LABS: ABG PH 7.708 (7.35-7.45)
[2021-12-27 04:23] LABS: Platelet Count 59 T/CUMM (130-400); White Blood Count 24.9 T/CUMM (4-12)
[2021-12-27 04:30] LABS: Band Neutrophils 7 % (0-10); Lymphocytes 9 % (20-55); Nucleated Red Blood Cells 99 (0-5); Total Cells Counted 100
[2021-12-27 04:31] LABS: Microcytosis Slight; Platelet Estimate Decreased
[2021-12-27 04:32] LABS: Partial Thromboplastin Time 62.8 SECS (23.7-32.9)
[2021-12-27] MEDS ORDERED: SODIUM BICARB INJ 150 MEQ in DEXTROSE 5% 850 ML IV SCH (04:38)
[2021-12-27 04:48] LABS: Albumin 2.2 G/DL (3.4-5.0); Calcium 6.9 MG/DL (8.5-10.1); Osmolality,Calculated 303.8 MOS/KG (273-304); Total Protein 3.5 G/DL (6.4-8.2)
[2021-12-27 04:53] LABS: Potassium 2.5 MMOL/L (3.5-5.1)
[2021-12-27] MEDS: POTASSIUM CHLORIDE RIDER 20 MEQ/100 ML PREMIX IV SCH ×2 (05:15→07:20)
[2021-12-27] MEDS: ALBUMIN 25% 25 GM/100 ML VIAL IV SCH (05:15)
[2021-12-27] MEDS: HYDROCORTISONE 100 MG VIAL IV SCH (05:15)
[2021-12-27] MEDS ORDERED: MORPHINE 2 MG/1 ML SYRINGE IV ONE (06:00)
[2021-12-27] MEDS: MAGNESIUM SULF RIDER 2 GM/50 ML PREMIX IV PRN (07:49)
[2021-12-27] MEDS ORDERED: POTASSIUM PHOSPHATE 30 MMOL in SODIUM CHLORIDE 0.9% 250 ML IV ONE (08:26)
[2021-12-27] MEDS: AZITHROMYCIN INJ 500 MG in SODIUM CHLORIDE 0.9% 250 ML IV SCH (08:30)
[2021-12-27] MEDS: PANTOPRAZOLE 40 MG VIAL IV SCH ×2 (08:30→20:32)
[2021-12-27 09:13] LABS: Arterial Base Excess iSTAT 10 MMOL/L (-2.5-2.5); Arterial Bicarbonate iSTAT 30.4 MMOL/L (20-26); Arterial O2 Saturation iSTAT 98 % (95-100); Arterial PCO2 iSTAT 25 MM HG (35-48); Arterial PO2 iSTAT 77 MM HG (80-95); Arterial Total CO2 iSTAT 31 MMO/L (23-27)
[2021-12-27] MEDS ORDERED: POTASSIUM PHOSPHATE 40 MMOL in SODIUM CHLORIDE 0.9% 250 ML IV ONE (10:00)
[2021-12-27 10:14] LABS: Hepatitis B Core IgM Quant 0.15 Index; Hepatitis B Surface Ag Quant < 0.10 Index; Hepatitis B Surface Ag Result Non-Reactive (NonReactive); Hepatitis C Virus Ab Quant 0.19 Index; Hepatitis C Virus Ab Result Non-Reactive (NonReactive)
[2021-12-27] MEDS: INSULIN REGULAR 100 UNIT/ML SUBCUT SCH ×2 (12:14→18:27)
[2021-12-27 14:12] LABS: Arterial Base Excess iSTAT 11 MMOL/L (-2.5-2.5); Arterial Bicarbonate iSTAT 32.2 MMOL/L (20-26); Arterial O2 Saturation iSTAT 99 % (95-100); Arterial PCO2 iSTAT 31 MM HG (35-48); Arterial PO2 iSTAT 113 MM HG (80-95); Arterial Total CO2 iSTAT 33 MMO/L (23-27); Arterial pH iSTAT 7.627 (7.35-7.45)
[2021-12-27 14:18] LABS: Calcium 6.5 MG/DL (8.5-10.1); Osmolality,Calculated 307.6 MOS/KG (273-304); Potassium 3.1 MMOL/L (3.5-5.1)
[2021-12-27] MEDS ORDERED: SODIUM CHLORIDE 0.9% 1,000 ML IV PRN (14:52)
[2021-12-28] MEDS: INSULIN REGULAR 100 UNIT/ML SUBCUT SCH ×5 (00:01→23:31)
[2021-12-28] MEDS: CEFTAROLINE 300 MG in SODIUM CHLORIDE 0.9% 100 ML IV SCH (00:01)
[2021-12-28] MEDS: ALBUTEROL/IPRATROPIUM 3 ML NEB RESP TX SCH ×4 (00:41→19:32)
[2021-12-28] MEDS: MEROPENEM 500 MG in SODIUM CHLORIDE 0.9% 100 ML IV SCH (01:18)
[2021-12-28 04:13] LABS: Arterial Base Excess iSTAT 12 MMOL/L (-2.5-2.5); Arterial Bicarbonate iSTAT 34.7 MMOL/L (20-26); Arterial O2 Saturation iSTAT 99 % (95-100); Arterial PCO2 iSTAT 36 MM HG (35-48); Arterial PO2 iSTAT 98 MM HG (80-95); Arterial Total CO2 iSTAT 36 MMO/L (23-27); Arterial pH iSTAT 7.592 (7.35-7.45)
[2021-12-28 04:43] LABS: Bilirubin,Total 3.5 MG/DL (0.20-1.00); Calcium 6.5 MG/DL (8.5-10.1); Osmolality,Calculated 315.4 MOS/KG (273-304); Potassium 3.3 MMOL/L (3.5-5.1); Total Protein 3.5 G/DL (6.4-8.2)
[2021-12-28 05:18] LABS: Basophils # 0.1 10*3/uL (0.0-0.2); Basophils % 0.2 % (0.0-0.8); Eosinophils % 0.1 % (0.00-10.9); Hematocrit 29.9 VOL% (42.0-52.0); Hemoglobin 10.3 GM/DL (14.0-18.0); Immature Granulocytes % 14.4 %; Lymphocytes # 1.6 10*3/uL (1.4-4.0); Lymphocytes % 5.1 % (21.2-54.2); Mean Corpuscular HGB Conc 34.4 GM/DL (32-36); Mean Corpuscular Volume 86.7 FL (87-102); Mean Platelet Volume 13.3 FL (9.6-12.0); Monocytes # 2.2 10*3/uL (0.11-0.8); NRBC # 14.68 10*3/uL; Neutrophils % 73.2 % (38.7-73.9); Platelet Count 50 T/CUMM (130-400); Red Blood Count 3.45 MC/CUMM (3.8-5.5); Red Cell Distribution Width 16.4 % (9.3-17.3); White Blood Count 31.2 T/CUMM (4-12)
[2021-12-28 05:21] LABS: Band Neutrophils 2 % (0-10); Lymphocytes 7 % (20-55); Nucleated Red Blood Cells 108 (0-5); Platelet Estimate Decreased; Total Cells Counted 100
[2021-12-28 05:22] LABS: Macrocytosis Slight; Polychromasia Slight
[2021-12-28] MEDS ORDERED: FUROSEMIDE 20 MG/2 ML VIAL IV ONE (07:13)
[2021-12-28 07:48] LABS: Phosphorous 3.1 MG/DL (2.5-4.9)
[2021-12-28] MEDS ORDERED: FUROSEMIDE 40 MG/4 ML VIAL IV ONE (08:31)
[2021-12-28] MEDS: AZITHROMYCIN INJ 500 MG in SODIUM CHLORIDE 0.9% 250 ML IV SCH (08:49)
[2021-12-28] MEDS: PANTOPRAZOLE 40 MG VIAL IV SCH ×2 (08:49→20:25)
[2021-12-28] MEDS: POTASSIUM CHLORIDE RIDER 20 MEQ/100 ML PREMIX IV SCH ×2 (17:22→19:17)
[2021-12-29] MEDS: ALBUTEROL/IPRATROPIUM 3 ML NEB RESP TX SCH ×4 (00:17→19:21)
[2021-12-29] MEDS: MEROPENEM 500 MG in SODIUM CHLORIDE 0.9% 100 ML IV SCH (01:20)
[2021-12-29 03:45] LABS: Basophils % 0.1 % (0.0-0.8); Eosinophils % 0.1 % (0.00-10.9); Hematocrit 30.6 VOL% (42.0-52.0); Hemoglobin 10.4 GM/DL (14.0-18.0); Immature Granulocytes % 14.9 %; Immature Granulocytes Absolute 3.63 #; Lymphocytes # 1.3 10*3/uL (1.4-4.0); Lymphocytes % 5.2 % (21.2-54.2); Mean Corpuscular Volume 89.2 FL (87-102); Mean Platelet Volume 14.5 FL (9.6-12.0); Monocytes # 1.8 10*3/uL (0.11-0.8); Monocytes % 7.3 % (1.7-12.7); NRBC # 15.61 10*3/uL; Neutrophils % 72.4 % (38.7-73.9); Platelet Count 47 T/CUMM (130-400); Red Blood Count 3.43 MC/CUMM (3.8-5.5); Red Cell Distribution Width 16.8 % (9.3-17.3); White Blood Count 24.4 T/CUMM (4-12)
[2021-12-29 04:09] LABS: Albumin 1.8 G/DL (3.4-5.0); Bilirubin,Total 4.1 MG/DL (0.20-1.00); Calcium 6.6 MG/DL (8.5-10.1); Osmolality,Calculated 316.7 MOS/KG (273-304); Potassium 3.8 MMOL/L (3.5-5.1); Total Protein 3.6 G/DL (6.4-8.2)
[2021-12-29 04:31] LABS: Band Neutrophils 2 % (0-10); Lymphocytes 3 % (20-55); Metamyelocytes 1 %; Nucleated Red Blood Cells 98 (0-5); Total Cells Counted 100
[2021-12-29 04:32] LABS: Microcytosis Slight; Ovalocytes Slight; Polychromasia Slight
[2021-12-29 04:33] LABS: Platelet Estimate Decreased; Target Cells Slight
[2021-12-29] MEDS: INSULIN REGULAR 100 UNIT/ML SUBCUT SCH ×3 (05:10→19:32)
[2021-12-29 06:07] LABS: Arterial Base Excess iSTAT 10 MMOL/L (-2.5-2.5); Arterial Bicarbonate iSTAT 32.1 MMOL/L (20-26); Arterial O2 Saturation iSTAT 98 % (95-100); Arterial PCO2 iSTAT 35 MM HG (35-48); Arterial PO2 iSTAT 82 MM HG (80-95); Arterial Total CO2 iSTAT 33 MMO/L (23-27); Arterial pH iSTAT 7.571 (7.35-7.45)
[2021-12-29] MEDS: PANTOPRAZOLE 40 MG VIAL IV SCH ×2 (08:17→20:42)
[2021-12-29] MEDS: AZITHROMYCIN INJ 500 MG in SODIUM CHLORIDE 0.9% 250 ML IV SCH (08:18)
[2021-12-29] MEDS: HEPARIN 5,000 UNIT/1 ML VIAL SUBCUT SCH ×2 (08:19→20:42)
[2021-12-29] MEDS ORDERED: HEPARIN 10,000 UNIT/10 ML VIAL IV SCH (15:15)
[2021-12-29] MEDS ORDERED: ALTEPLASE 2 MG VIAL INTRACATH ONE (16:00)
[2021-12-30] MEDS: ALBUTEROL/IPRATROPIUM 3 ML NEB RESP TX SCH ×4 (00:02→18:19)
[2021-12-30] MEDS: INSULIN REGULAR 100 UNIT/ML SUBCUT SCH ×4 (00:33→19:26)
[2021-12-30] MEDS: MEROPENEM 500 MG in SODIUM CHLORIDE 0.9% 100 ML IV SCH (01:27)
[2021-12-30 04:36] LABS: Basophils % 0.2 % (0.0-0.8); Eosinophils # 0.1 10*3/uL (0.0-0.87); Eosinophils % 0.3 % (0.00-10.9); Hematocrit 27.9 VOL% (42.0-52.0); Hemoglobin 9.2 GM/DL (14.0-18.0); Immature Granulocytes % 9.6 %; Immature Granulocytes Absolute 1.68 #; Lymphocytes # 4.4 10*3/uL (1.4-4.0); Lymphocytes % 25.3 % (21.2-54.2); Mean Corpuscular Volume 90.9 FL (87-102); Mean Platelet Volume 13.8 FL (9.6-12.0); Monocytes % 5.6 % (1.7-12.7); NRBC # 0.71 10*3/uL; Platelet Count 47 T/CUMM (130-400); Red Blood Count 3.07 MC/CUMM (3.8-5.5); Red Cell Distribution Width 17.2 % (9.3-17.3); White Blood Count 17.4 T/CUMM (4-12)
[2021-12-30 04:41] LABS: Arterial Base Excess iSTAT 8 MMOL/L (-2.5-2.5); Arterial O2 Saturation iSTAT 99 % (95-100); Arterial PCO2 iSTAT 39 MM HG (35-48); Arterial PO2 iSTAT 104 MM HG (80-95); Arterial Total CO2 iSTAT 33 MMO/L (23-27); Arterial pH iSTAT 7.517 (7.35-7.45)
[2021-12-30 04:55] LABS: Phosphorous 4.8 MG/DL (2.5-4.9)
[2021-12-30 05:06] LABS: Lymphocytes 10 % (20-55); Nucleated Red Blood Cells 52 (0-5); Platelet Estimate Decreased; Total Cells Counted 100
[2021-12-30 07:55] LABS: Albumin 1.7 G/DL (3.4-5.0); Bilirubin,Total 3.9 MG/DL (0.20-1.00); Calcium 6.6 MG/DL (8.5-10.1); Osmolality,Calculated 319.6 MOS/KG (273-304); Potassium 3.8 MMOL/L (3.5-5.1); Total Protein 3.7 G/DL (6.4-8.2)
[2021-12-30] MEDS: MORPHINE 2 MG/1 ML SYRINGE IV PRN (10:22)
[2021-12-30] MEDS: PANTOPRAZOLE 40 MG VIAL IV SCH ×2 (12:12→20:25)
[2021-12-30] MEDS: HEPARIN 5,000 UNIT/1 ML VIAL SUBCUT SCH ×2 (12:12→20:25)
[2021-12-30] MEDS ORDERED: ALBUMIN 25% 25 GM/100 ML VIAL IV ONE (13:07)
[2021-12-30] MEDS: AZITHROMYCIN INJ 500 MG in SODIUM CHLORIDE 0.9% 250 ML IV SCH (14:14)
[2021-12-30] MEDS: DEXMEDETOMIDINE 200 MCG in SODIUM CHLORIDE 0.9% 48 ML IV PRN ×2 (15:40→20:38)
[2021-12-31] MEDS: ALBUTEROL/IPRATROPIUM 3 ML NEB RESP TX SCH ×4 (00:05→20:18)
[2021-12-31] MEDS: INSULIN REGULAR 100 UNIT/ML SUBCUT SCH ×4 (00:08→17:46)
[2021-12-31] MEDS: MORPHINE 2 MG/1 ML SYRINGE IV PRN (00:19)
[2021-12-31] MEDS: MEROPENEM 500 MG in SODIUM CHLORIDE 0.9% 100 ML IV SCH (01:33)
[2021-12-31 03:50] LABS: Basophils # 0.1 10*3/uL (0.0-0.2); Basophils % 0.5 % (0.0-0.8); Eosinophils # 0.3 10*3/uL (0.0-0.87); Hematocrit 29.7 VOL% (42.0-52.0); Hemoglobin 9.6 GM/DL (14.0-18.0); Immature Granulocytes % 9.7 %; Immature Granulocytes Absolute 1.42 #; Lymphocytes # 0.9 10*3/uL (1.4-4.0); Lymphocytes % 6.2 % (21.2-54.2); Mean Corpuscular HGB Conc 32.3 GM/DL (32-36); Mean Corpuscular Volume 93.7 FL (87-102); Mean Platelet Volume 14.2 FL (9.6-12.0); Monocytes % 7.1 % (1.7-12.7); NRBC # 2.55 10*3/uL; Neutrophils % 74.5 % (38.7-73.9); Platelet Count 46 T/CUMM (130-400); Red Blood Count 3.17 MC/CUMM (3.8-5.5); Red Cell Distribution Width 18.4 % (9.3-17.3); White Blood Count 14.6 T/CUMM (4-12)
[2021-12-31 04:09] LABS: Bilirubin,Total 5.2 MG/DL (0.20-1.00); Calcium 7.6 MG/DL (8.5-10.1); Osmolality,Calculated 307.7 MOS/KG (273-304); Potassium 4.2 MMOL/L (3.5-5.1); Total Protein 4.4 G/DL (6.4-8.2)
[2021-12-31 04:17] LABS: ABG Base Excess 4.1 MMOL/L (-2.5-2.5); ABG Oxygen Saturation 97.2 % (95-100); ABG PCO2 41.4 MM HG (35-48); ABG PH 7.445 (7.35-7.45); ABG PO2 98.2 MM HG (80-95); ABG TCO2 25.8 MMOL/L (23-27)
[2021-12-31 04:25] LABS: Eosinophils 4 % (0-10); Lymphocytes 15 % (20-55); Metamyelocytes 1 %; Nucleated Red Blood Cells 40 (0-5); Total Cells Counted 100
[2021-12-31 04:26] LABS: Anisocytosis 1+; Polychromasia Slight
[2021-12-31 04:27] LABS: Macrocytosis 1+; Platelet Estimate Decreased
[2021-12-31] MEDS: DEXMEDETOMIDINE 200 MCG in SODIUM CHLORIDE 0.9% 48 ML IV PRN ×2 (05:55→11:49)
[2021-12-31] MEDS ORDERED: MIDAZOLAM 2 MG/2 ML VIAL IV ONE (08:14)
[2021-12-31] MEDS ORDERED: MIDAZOLAM 2 MG/2 ML VIAL ONE (08:16)
[2021-12-31] MEDS: PANTOPRAZOLE 40 MG VIAL IV SCH ×2 (09:04→20:35)
[2021-12-31] MEDS: HEPARIN 5,000 UNIT/1 ML VIAL SUBCUT SCH ×2 (09:05→20:35)
[2021-12-31 09:48] LABS: Arterial Base Excess iSTAT 7 MMOL/L (-2.5-2.5); Arterial O2 Saturation iSTAT 97 % (95-100); Arterial PCO2 iSTAT 56 MM HG (35-48); Arterial PO2 iSTAT 97 MM HG (80-95); Arterial Total CO2 iSTAT 35 MMO/L (23-27); Arterial pH iSTAT 7.379 (7.35-7.45)
[2021-12-31] MEDS ORDERED: AMINO ACIDS IV SCH (17:00)
[2021-12-31] MEDS ORDERED: ELECTROLYTE IV SCH (17:00)
[2021-12-31] MEDS ORDERED: [UNRECOGNIZED DRUG - OTHER] IV SCH (17:00)
[2021-12-31] MEDS ORDERED: MULTIVITAMIN IV SCH (17:00)
[2021-12-31] MEDS ORDERED: DEXTROSE 10% 1,000 ML IV PRN (17:00)
[2022-01-01] MEDS: ALBUTEROL/IPRATROPIUM 3 ML NEB RESP TX SCH ×4 (00:16→19:40)
[2022-01-01] MEDS: INSULIN REGULAR 100 UNIT/ML SUBCUT SCH ×4 (01:08→17:41)
[2022-01-01] MEDS: MEROPENEM 500 MG in SODIUM CHLORIDE 0.9% 100 ML IV SCH (01:50)
[2022-01-01] MEDS: MORPHINE 2 MG/1 ML SYRINGE IV PRN (04:31)
[2022-01-01 04:37] LABS: Basophils # 0.1 10*3/uL (0.0-0.2); Basophils % 0.6 % (0.0-0.8); Eosinophils # 0.3 10*3/uL (0.0-0.87); Eosinophils % 2.2 % (0.00-10.9); Hematocrit 28.1 VOL% (42.0-52.0); Immature Granulocytes % 6.2 %; Immature Granulocytes Absolute 0.93 #; Lymphocytes # 0.7 10*3/uL (1.4-4.0); Lymphocytes % 4.4 % (21.2-54.2); Mean Corpuscular Volume 93.7 FL (87-102); Mean Platelet Volume 13.6 FL (9.6-12.0); Monocytes # 1.1 10*3/uL (0.11-0.8); Monocytes % 7.6 % (1.7-12.7); NRBC # 0.55 10*3/uL; Platelet Count 59 T/CUMM (130-400); Red Cell Distribution Width 18.7 % (9.3-17.3); White Blood Count 14.9 T/CUMM (4-12)
[2022-01-01 05:14] LABS: Band Neutrophils 1 % (0-10); Eosinophils 1 % (0-10); Hypochromia Slight; Lymphocytes 2 % (20-55); Nucleated Red Blood Cells 5 (0-5); Platelet Estimate Decreased; Total Cells Counted 100
[2022-01-01] MEDS: HEPARIN 5,000 UNIT/1 ML VIAL SUBCUT SCH ×2 (08:37→21:18)
[2022-01-01] MEDS: PANTOPRAZOLE 40 MG VIAL IV SCH ×2 (08:37→21:20)
[2022-01-01 09:24] LABS: Calcium 8.1 MG/DL (8.5-10.1); Osmolality,Calculated 317.4 MOS/KG (273-304)
[2022-01-01 09:37] LABS: Bilirubin,Direct 4.04 MG/DL (0.0-0.20); Bilirubin,Indirect 1.7 MG/DL (0.0-1.0); Bilirubin,Total 5.7 MG/DL (0.20-1.00); Total Protein 4.7 G/DL (6.4-8.2)
[2022-01-01] MEDS: FAT EMULSION 20% 250 ML IV SCH (14:58)
[2022-01-01] MEDS: ELECTROLYTE IV SCH (18:11)
[2022-01-01] MEDS: AMINO ACIDS IV SCH (18:11)
[2022-01-01] MEDS: [UNRECOGNIZED DRUG - OTHER] IV SCH (18:11)
[2022-01-01] MEDS: MULTIVITAMIN IV SCH (18:11)
[2022-01-01] MEDS ORDERED: HALOPERIDOL 5 MG/ML AMP IM PRN (18:55)
[2022-01-02] MEDS: ALBUTEROL/IPRATROPIUM 3 ML NEB RESP TX SCH ×4 (00:45→19:19)
[2022-01-02] MEDS: MORPHINE 2 MG/1 ML SYRINGE IV PRN (01:07)
[2022-01-02] MEDS: ONDANSETRON 4 MG/2 ML VIAL IV PRN (01:07)
[2022-01-02] MEDS: INSULIN REGULAR 100 UNIT/ML SUBCUT SCH ×4 (01:08→18:54)
[2022-01-02] MEDS: MEROPENEM 500 MG in SODIUM CHLORIDE 0.9% 100 ML IV SCH (02:40)
[2022-01-02 06:21] LABS: Basophils # 0.1 10*3/uL (0.0-0.2); Basophils % 0.6 % (0.0-0.8); Eosinophils # 0.4 10*3/uL (0.0-0.87); Eosinophils % 1.6 % (0.00-10.9); Hematocrit 28.5 VOL% (42.0-52.0); Hemoglobin 9.3 GM/DL (14.0-18.0); Immature Granulocytes % 6.9 %; Immature Granulocytes Absolute 1.48 #; Lymphocytes # 1.1 10*3/uL (1.4-4.0); Lymphocytes % 5.2 % (21.2-54.2); Mean Corpuscular HGB Conc 32.6 GM/DL (32-36); Mean Corpuscular Volume 93.4 FL (87-102); Mean Platelet Volume 14.7 FL (9.6-12.0); Monocytes # 2.1 10*3/uL (0.11-0.8); Monocytes % 9.9 % (1.7-12.7); NRBC # 0.26 10*3/uL; Neutrophils % 75.8 % (38.7-73.9); Platelet Count 105 T/CUMM (130-400); Red Blood Count 3.05 MC/CUMM (3.8-5.5); Red Cell Distribution Width 19.2 % (9.3-17.3); White Blood Count 21.4 T/CUMM (4-12)
[2022-01-02 06:47] LABS: Albumin 1.8 G/DL (3.4-5.0); Calcium 7.9 MG/DL (8.5-10.1); Osmolality,Calculated 310.4 MOS/KG (273-304); Potassium 3.6 MMOL/L (3.5-5.1); Total Protein 4.5 G/DL (6.4-8.2)
[2022-01-02 08:42] LABS: Band Neutrophils 9 % (0-10); Eosinophils 2 % (0-10); Lymphocytes 7 % (20-55); Metamyelocytes 2 %; Myelocytes 2 %; Nucleated Red Blood Cells 3 (0-5); Total Cells Counted 100
[2022-01-02 08:43] LABS: Anisocytosis 2+; Basophilic Stippling Slight; Macrocytosis 1+; Platelet Estimate Adequate
[2022-01-02] MEDS: HEPARIN 5,000 UNIT/1 ML VIAL SUBCUT SCH ×2 (09:26→20:23)
[2022-01-02] MEDS: PANTOPRAZOLE 40 MG VIAL IV SCH ×2 (09:27→20:24)
[2022-01-02] MEDS ORDERED: LEVOFLOXACIN INJ 500 MG/100 ML PREMIX IV SCH (10:00)
[2022-01-02] MEDS: FAT EMULSION 20% 250 ML IV SCH (15:55)
[2022-01-02] MEDS: AMINO ACIDS IV SCH (17:54)
[2022-01-02] MEDS: [UNRECOGNIZED DRUG - OTHER] IV SCH (17:54)
[2022-01-02] MEDS: MULTIVITAMIN IV SCH (17:54)
[2022-01-02] MEDS: ELECTROLYTE IV SCH (17:54)
[2022-01-03] MEDS: ALBUTEROL/IPRATROPIUM 3 ML NEB RESP TX SCH ×4 (00:04→19:47)
[2022-01-03] MEDS: INSULIN REGULAR 100 UNIT/ML SUBCUT SCH ×4 (01:11→18:20)
[2022-01-03] MEDS: MEROPENEM 500 MG in SODIUM CHLORIDE 0.9% 100 ML IV SCH (02:12)
[2022-01-03 05:36] LABS: Basophils # 0.2 10*3/uL (0.0-0.2); Basophils % 0.7 % (0.0-0.8); Eosinophils # 0.3 10*3/uL (0.0-0.87); Eosinophils % 1.4 % (0.00-10.9); Hematocrit 28.5 VOL% (42.0-52.0); Hemoglobin 9.3 GM/DL (14.0-18.0); Immature Granulocytes % 6.7 %; Immature Granulocytes Absolute 1.68 #; Lymphocytes # 1.1 10*3/uL (1.4-4.0); Lymphocytes % 4.3 % (21.2-54.2); Mean Corpuscular HGB Conc 32.6 GM/DL (32-36); Mean Corpuscular Volume 92.8 FL (87-102); Mean Platelet Volume 13.8 FL (9.6-12.0); Monocytes % 11.9 % (1.7-12.7); Platelet Count 143 T/CUMM (130-400); Red Blood Count 3.07 MC/CUMM (3.8-5.5); Red Cell Distribution Width 19.3 % (9.3-17.3); White Blood Count 25.2 T/CUMM (4-12)
[2022-01-03 05:48] LABS: Albumin 1.7 G/DL (3.4-5.0); Bilirubin,Total 5.2 MG/DL (0.20-1.00); Calcium 8.4 MG/DL (8.5-10.1); Osmolality,Calculated 312.4 MOS/KG (273-304); Potassium 3.8 MMOL/L (3.5-5.1); Total Protein 4.6 G/DL (6.4-8.2)
[2022-01-03 05:58] LABS: Phosphorous 3.2 MG/DL (2.5-4.9)
[2022-01-03 06:58] LABS: Eosinophils 3 % (0-10); Lymphocytes 4 % (20-55); Ovalocytes Slight; Platelet Estimate Adequate; Polychromasia Slight; Target Cells Few; Total Cells Counted 100
[2022-01-03] MEDS: HEPARIN 5,000 UNIT/1 ML VIAL SUBCUT SCH ×2 (09:59→16:57)
[2022-01-03] MEDS: cefTRIAXone 2,000 MG in SODIUM CHLORIDE 0.9% 100 ML IV SCH (10:00)
[2022-01-03] MEDS: PANTOPRAZOLE 40 MG VIAL IV SCH ×2 (10:00→20:09)
[2022-01-03] MEDS: metroNIDAZOLE INJ 500 MG/100 ML PREMIX IV SCH ×2 (10:44→18:30)
[2022-01-03] MEDS: FAT EMULSION 20% 250 ML IV SCH (15:55)
[2022-01-03] MEDS: MULTIVITAMIN IV SCH (18:20)
[2022-01-03] MEDS: AMINO ACIDS IV SCH (18:20)
[2022-01-03] MEDS: [UNRECOGNIZED DRUG - OTHER] IV SCH (18:20)
[2022-01-03] MEDS: ELECTROLYTE IV SCH (18:20)
[2022-01-03] MEDS: MORPHINE 2 MG/1 ML SYRINGE IV PRN (20:30)
[2022-01-03] MEDS: ONDANSETRON 4 MG/2 ML VIAL IV PRN (20:30)
[2022-01-04] MEDS: ALBUTEROL/IPRATROPIUM 3 ML NEB RESP TX SCH ×4 (00:05→19:53)
[2022-01-04] MEDS: HEPARIN 5,000 UNIT/1 ML VIAL SUBCUT SCH ×3 (00:06→17:30)
[2022-01-04] MEDS: metroNIDAZOLE INJ 500 MG/100 ML PREMIX IV SCH ×3 (03:34→18:34)
[2022-01-04 05:10] LABS: Basophils # 0.1 10*3/uL (0.0-0.2); Basophils % 0.6 % (0.0-0.8); Eosinophils # 0.6 10*3/uL (0.0-0.87); Eosinophils % 2.6 % (0.00-10.9); Hematocrit 28.2 VOL% (42.0-52.0); Hemoglobin 9.2 GM/DL (14.0-18.0); Immature Granulocytes % 5.9 %; Immature Granulocytes Absolute 1.34 #; Lymphocytes # 1.3 10*3/uL (1.4-4.0); Lymphocytes % 5.5 % (21.2-54.2); Mean Corpuscular HGB Conc 32.6 GM/DL (32-36); Mean Corpuscular Volume 92.5 FL (87-102); Mean Platelet Volume 13.7 FL (9.6-12.0); Monocytes # 3.3 10*3/uL (0.11-0.8); Monocytes % 14.7 % (1.7-12.7); NRBC # 0.12 10*3/uL; Neutrophils % 70.7 % (38.7-73.9); Platelet Count 196 T/CUMM (130-400); Red Blood Count 3.05 MC/CUMM (3.8-5.5); Red Cell Distribution Width 19.5 % (9.3-17.3); White Blood Count 22.7 T/CUMM (4-12)
[2022-01-04 05:24] LABS: Calcium 8.2 MG/DL (8.5-10.1); Osmolality,Calculated 320.1 MOS/KG (273-304); Potassium 3.9 MMOL/L (3.5-5.1)
[2022-01-04] MEDS: INSULIN REGULAR 100 UNIT/ML SUBCUT SCH ×4 (05:25→17:28)
[2022-01-04 05:42] LABS: Band Neutrophils 3 % (0-10); Eosinophils 8 % (0-10); Hypochromia Slight; Lymphocytes 8 % (20-55); Total Cells Counted 100
[2022-01-04 05:43] LABS: Macrocytosis 1+; Polychromasia Slight; Target Cells Slight
[2022-01-04 05:44] LABS: Platelet Estimate Adequate
[2022-01-04 07:56] LABS: Albumin 1.8 G/DL (3.4-5.0); Bilirubin,Direct 4.17 MG/DL (0.0-0.20); Bilirubin,Indirect 0.8 MG/DL (0.0-1.0); Total Protein 4.5 G/DL (6.4-8.2)
[2022-01-04] MEDS: cefTRIAXone 2,000 MG in SODIUM CHLORIDE 0.9% 100 ML IV SCH (09:15)
[2022-01-04] MEDS: PANTOPRAZOLE 40 MG VIAL IV SCH ×2 (09:20→20:08)
[2022-01-04] MEDS ORDERED: ACETAMINOPHEN INJ 1,000 MG/100 ML VIAL IV ONE (11:40)
[2022-01-04] MEDS: FAT EMULSION 20% 250 ML IV SCH (15:27)
[2022-01-04] MEDS: [UNRECOGNIZED DRUG - OTHER] IV SCH (17:11)
[2022-01-04] MEDS: MULTIVITAMIN IV SCH (17:11)
[2022-01-04] MEDS: AMINO ACIDS IV SCH (17:11)
[2022-01-04] MEDS: ELECTROLYTE IV SCH (17:11)
[2022-01-05] MEDS: INSULIN REGULAR 100 UNIT/ML SUBCUT SCH ×4 (00:23→17:02)
[2022-01-05] MEDS: HEPARIN 5,000 UNIT/1 ML VIAL SUBCUT SCH ×3 (00:52→18:02)
[2022-01-05] MEDS: ALBUTEROL/IPRATROPIUM 3 ML NEB RESP TX SCH ×4 (02:00→19:00)
[2022-01-05] MEDS: metroNIDAZOLE INJ 500 MG/100 ML PREMIX IV SCH ×3 (03:05→19:00)
[2022-01-05 04:05] LABS: Basophils # 0.1 10*3/uL (0.0-0.2); Basophils % 0.6 % (0.0-0.8); Eosinophils # 0.4 10*3/uL (0.0-0.87); Eosinophils % 1.9 % (0.00-10.9); Hematocrit 27.6 VOL% (42.0-52.0); Hemoglobin 8.9 GM/DL (14.0-18.0); Immature Granulocytes Absolute 1.06 #; Lymphocytes # 1.2 10*3/uL (1.4-4.0); Lymphocytes % 5.7 % (21.2-54.2); Mean Corpuscular HGB Conc 32.2 GM/DL (32-36); Monocytes # 3.7 10*3/uL (0.11-0.8); Monocytes % 17.2 % (1.7-12.7); NRBC # 0.11 10*3/uL; Neutrophils % 69.6 % (38.7-73.9); Platelet Count 201 T/CUMM (130-400); Red Cell Distribution Width 19.8 % (9.3-17.3); White Blood Count 21.3 T/CUMM (4-12)
[2022-01-05 04:26] LABS: Eosinophils 3 % (0-10); Lymphocytes 9 % (20-55); Macrocytosis 1+; Nucleated Red Blood Cells 2 (0-5); Target Cells Slight; Total Cells Counted 100
[2022-01-05 04:27] LABS: Platelet Estimate Normal; Polychromasia Slight
[2022-01-05 04:29] LABS: Phosphorous 3.7 MG/DL (2.5-4.9)
[2022-01-05 04:42] LABS: Albumin 1.7 G/DL (3.4-5.0); Bilirubin,Direct 3.58 MG/DL (0.0-0.20); Bilirubin,Total 4.6 MG/DL (0.20-1.00); Total Protein 4.5 G/DL (6.4-8.2)
[2022-01-05 05:01] LABS: Calcium 8.2 MG/DL (8.5-10.1); Osmolality,Calculated 324.3 MOS/KG (273-304); Potassium 4.1 MMOL/L (3.5-5.1)
[2022-01-05] MEDS ORDERED: FUROSEMIDE 40 MG/4 ML VIAL IV ONE (07:25)
[2022-01-05] MEDS: cefTRIAXone 2,000 MG in SODIUM CHLORIDE 0.9% 100 ML IV SCH (08:46)
[2022-01-05] MEDS: PANTOPRAZOLE 40 MG VIAL IV SCH ×2 (08:48→20:33)
[2022-01-05] MEDS: ACETAMINOPHEN 325 MG TABLET PO PRN (09:28)
[2022-01-05] MEDS: MORPHINE 2 MG/1 ML SYRINGE IV PRN (12:22)
[2022-01-05] MEDS: [UNRECOGNIZED DRUG - OTHER] IV SCH (17:02)
[2022-01-05] MEDS: FAT EMULSION 20% 250 ML IV SCH (17:02)
[2022-01-05] MEDS: AMINO ACIDS IV SCH (17:02)
[2022-01-05] MEDS: MULTIVITAMIN IV SCH (17:02)
[2022-01-05] MEDS: ELECTROLYTE IV SCH (17:02)
[2022-01-06] MEDS: ALBUTEROL/IPRATROPIUM 3 ML NEB RESP TX SCH ×4 (00:06→19:07)
[2022-01-06] MEDS: INSULIN REGULAR 100 UNIT/ML SUBCUT SCH ×5 (00:14→23:29)
[2022-01-06] MEDS: HEPARIN 5,000 UNIT/1 ML VIAL SUBCUT SCH ×3 (00:51→16:36)
[2022-01-06] MEDS: metroNIDAZOLE INJ 500 MG/100 ML PREMIX IV SCH ×3 (02:49→21:12)
[2022-01-06 05:22] LABS: Basophils # 0.2 10*3/uL (0.0-0.2); Basophils % 0.7 % (0.0-0.8); Eosinophils # 0.4 10*3/uL (0.0-0.87); Eosinophils % 1.8 % (0.00-10.9); Hematocrit 27.3 VOL% (42.0-52.0); Hemoglobin 9.1 GM/DL (14.0-18.0); Immature Granulocytes % 3.7 %; Immature Granulocytes Absolute 0.83 #; Lymphocytes # 1.6 10*3/uL (1.4-4.0); Lymphocytes % 6.9 % (21.2-54.2); Mean Corpuscular HGB Conc 33.3 GM/DL (32-36); Mean Corpuscular Volume 89.5 FL (87-102); Mean Platelet Volume 13.7 FL (9.6-12.0); Monocytes # 3.5 10*3/uL (0.11-0.8); Monocytes % 15.4 % (1.7-12.7); NRBC # 0.09 10*3/uL; Neutrophils % 71.5 % (38.7-73.9); Platelet Count 305 T/CUMM (130-400); Red Blood Count 3.05 MC/CUMM (3.8-5.5); Red Cell Distribution Width 19.3 % (9.3-17.3); White Blood Count 22.5 T/CUMM (4-12)
[2022-01-06 05:36] LABS: Calcium 8.7 MG/DL (8.5-10.1); Osmolality,Calculated 327.1 MOS/KG (273-304); Potassium 3.7 MMOL/L (3.5-5.1)
[2022-01-06 05:37] LABS: Phosphorous 3.8 MG/DL (2.5-4.9)
[2022-01-06 05:43] LABS: Band Neutrophils 1 % (0-10); Eosinophils 1 % (0-10); Lymphocytes 4 % (20-55); Nucleated Red Blood Cells 1 (0-5); Total Cells Counted 100
[2022-01-06 05:44] LABS: Hypochromia 1+; Macrocytosis 1+; Target Cells Few
[2022-01-06 05:45] LABS: Anisocytosis 1+
[2022-01-06] MEDS: PANTOPRAZOLE 40 MG VIAL IV SCH ×2 (09:21→21:08)
[2022-01-06] MEDS: cefTRIAXone 2,000 MG in SODIUM CHLORIDE 0.9% 100 ML IV SCH (09:23)
[2022-01-06] MEDS: AMINO ACIDS IV SCH (16:36)
[2022-01-06] MEDS: [UNRECOGNIZED DRUG - OTHER] IV SCH (16:36)
[2022-01-06] MEDS: MULTIVITAMIN IV SCH (16:36)
[2022-01-06] MEDS: FAT EMULSION 20% 250 ML IV SCH (16:36)
[2022-01-06] MEDS: ELECTROLYTE IV SCH (16:36)
[2022-01-06] MEDS: MORPHINE 2 MG/1 ML SYRINGE IV PRN (16:41)
[2022-01-06] MEDS: ONDANSETRON 4 MG/2 ML VIAL IV PRN (17:05)
[2022-01-07] MEDS: HEPARIN 5,000 UNIT/1 ML VIAL SUBCUT SCH ×4 (00:07→23:59)
[2022-01-07] MEDS: ONDANSETRON 4 MG/2 ML VIAL IV PRN ×2 (00:12→17:32)
[2022-01-07] MEDS: ALBUTEROL/IPRATROPIUM 3 ML NEB RESP TX SCH ×4 (00:37→19:56)
[2022-01-07] MEDS: metroNIDAZOLE INJ 500 MG/100 ML PREMIX IV SCH ×3 (04:03→20:45)
[2022-01-07 04:58] LABS: Basophils # 0.1 10*3/uL (0.0-0.2); Basophils % 0.6 % (0.0-0.8); Eosinophils # 0.6 10*3/uL (0.0-0.87); Eosinophils % 2.7 % (0.00-10.9); Hematocrit 26.7 VOL% (42.0-52.0); Hemoglobin 8.7 GM/DL (14.0-18.0); Immature Granulocytes Absolute 0.84 #; Lymphocytes # 1.7 10*3/uL (1.4-4.0); Lymphocytes % 7.9 % (21.2-54.2); Mean Corpuscular HGB Conc 32.6 GM/DL (32-36); Mean Corpuscular Volume 90.5 FL (87-102); Mean Platelet Volume 13.3 FL (9.6-12.0); Monocytes # 3.2 10*3/uL (0.11-0.8); Monocytes % 15.4 % (1.7-12.7); NRBC # 0.07 10*3/uL; Neutrophils % 69.4 % (38.7-73.9); Platelet Count 345 T/CUMM (130-400); Red Blood Count 2.95 MC/CUMM (3.8-5.5); Red Cell Distribution Width 19.3 % (9.3-17.3); White Blood Count 20.9 T/CUMM (4-12)
[2022-01-07 06:19] LABS: Eosinophils 2 % (0-10); Lymphocytes 6 % (20-55); Platelet Estimate Adequate; Total Cells Counted 100
[2022-01-07 06:20] LABS: Stomatocytes 1+; Target Cells 1+
[2022-01-07] MEDS: INSULIN REGULAR 100 UNIT/ML SUBCUT SCH ×3 (06:21→17:50)
[2022-01-07 08:02] LABS: Albumin 1.8 G/DL (3.4-5.0); Bilirubin,Total 3.9 MG/DL (0.20-1.00); Calcium 8.5 MG/DL (8.5-10.1); Osmolality,Calculated 323.9 MOS/KG (273-304); Potassium 3.9 MMOL/L (3.5-5.1); Total Protein 4.9 G/DL (6.4-8.2)
[2022-01-07] MEDS: cefTRIAXone 2,000 MG in SODIUM CHLORIDE 0.9% 100 ML IV SCH (08:32)
[2022-01-07] MEDS: PANTOPRAZOLE 40 MG VIAL IV SCH ×2 (08:33→20:46)
[2022-01-07] MEDS: MORPHINE 2 MG/1 ML SYRINGE IV PRN (08:56)
[2022-01-07] MEDS ORDERED: DEXTROSE 5% 1,000 ML IV SCH (09:30)
[2022-01-07] MEDS: MULTIVITAMIN INJ 10 ML in AMINO ACIDS/DEXT/LYTES 5-15% 2,000 ML IV SCH (17:18)
[2022-01-07] MEDS: FAT EMULSION 20% 250 ML IV SCH (17:23)
[2022-01-08] MEDS: INSULIN REGULAR 100 UNIT/ML SUBCUT SCH ×4 (00:26→18:42)
[2022-01-08] MEDS: ALBUTEROL/IPRATROPIUM 3 ML NEB RESP TX SCH ×4 (00:48→19:21)
[2022-01-08] MEDS: metroNIDAZOLE INJ 500 MG/100 ML PREMIX IV SCH (04:43)
[2022-01-08 04:58] LABS: Basophils # 0.2 10*3/uL (0.0-0.2); Basophils % 0.8 % (0.0-0.8); Eosinophils # 0.5 10*3/uL (0.0-0.87); Eosinophils % 2.6 % (0.00-10.9); Hematocrit 26.8 VOL% (42.0-52.0); Hemoglobin 8.6 GM/DL (14.0-18.0); Immature Granulocytes % 4.7 %; Immature Granulocytes Absolute 0.94 #; Lymphocytes # 2.1 10*3/uL (1.4-4.0); Lymphocytes % 10.4 % (21.2-54.2); Mean Corpuscular HGB Conc 32.1 GM/DL (32-36); Mean Corpuscular Volume 91.8 FL (87-102); Mean Platelet Volume 13.7 FL (9.6-12.0); Monocytes # 3.2 10*3/uL (0.11-0.8); Monocytes % 16.1 % (1.7-12.7); NRBC # 0.05 10*3/uL; Neutrophils % 65.4 % (38.7-73.9); Platelet Count 366 T/CUMM (130-400); Red Blood Count 2.92 MC/CUMM (3.8-5.5); Red Cell Distribution Width 19.5 % (9.3-17.3); White Blood Count 19.9 T/CUMM (4-12)
[2022-01-08 05:20] LABS: Albumin 1.8 G/DL (3.4-5.0); Bilirubin,Total 3.8 MG/DL (0.20-1.00); Calcium 8.7 MG/DL (8.5-10.1); Osmolality,Calculated 317.3 MOS/KG (273-304); Potassium 3.9 MMOL/L (3.5-5.1)
[2022-01-08 05:23] LABS: Eosinophils 5 % (0-10); Lymphocytes 8 % (20-55); Myelocytes 1 %
[2022-01-08 05:24] LABS: Hypochromia Slight; Platelet Estimate Normal; Target Cells Slight; Total Cells Counted 100
[2022-01-08] MEDS: HEPARIN 5,000 UNIT/1 ML VIAL SUBCUT SCH ×2 (09:36→16:39)
[2022-01-08] MEDS: PANTOPRAZOLE 40 MG VIAL IV SCH ×2 (09:43→21:07)
[2022-01-08] MEDS: cefTRIAXone 2,000 MG in SODIUM CHLORIDE 0.9% 100 ML IV SCH (09:45)
[2022-01-08] MEDS: MEROPENEM 500 MG in SODIUM CHLORIDE 0.9% 100 ML IV SCH ×2 (11:29→18:33)
[2022-01-08] MEDS: LIDOCAINE 5% PATCH TRANSDERM SCH (13:12)
[2022-01-08] MEDS: MULTIVITAMIN INJ 10 ML in AMINO ACIDS/DEXT/LYTES 5-15% 2,000 ML IV SCH (13:16)
[2022-01-08] MEDS: ACETAMINOPHEN 325 MG TABLET PO PRN (15:13)
[2022-01-08] MEDS: FAT EMULSION 20% 250 ML IV SCH (16:39)
[2022-01-09] MEDS: ALBUTEROL/IPRATROPIUM 3 ML NEB RESP TX SCH ×4 (00:43→19:10)
[2022-01-09] MEDS: INSULIN REGULAR 100 UNIT/ML SUBCUT SCH ×4 (02:13→18:05)
[2022-01-09] MEDS: HEPARIN 5,000 UNIT/1 ML VIAL SUBCUT SCH ×3 (02:14→16:04)
[2022-01-09] MEDS: MEROPENEM 500 MG in SODIUM CHLORIDE 0.9% 100 ML IV SCH ×3 (02:15→17:51)
[2022-01-09 05:12] LABS: Basophils # 0.1 10*3/uL (0.0-0.2); Basophils % 0.4 % (0.0-0.8); Eosinophils # 0.5 10*3/uL (0.0-0.87); Eosinophils % 2.6 % (0.00-10.9); Hematocrit 26.3 VOL% (42.0-52.0); Hemoglobin 8.5 GM/DL (14.0-18.0); Immature Granulocytes % 5.8 %; Immature Granulocytes Absolute 1.01 #; Lymphocytes % 11.5 % (21.2-54.2); Mean Corpuscular HGB Conc 32.3 GM/DL (32-36); Mean Corpuscular Volume 92.3 FL (87-102); Mean Platelet Volume 13.8 FL (9.6-12.0); Monocytes # 2.7 10*3/uL (0.11-0.8); Monocytes % 15.5 % (1.7-12.7); NRBC # 0.06 10*3/uL; Neutrophils % 64.2 % (38.7-73.9); Platelet Count 396 T/CUMM (130-400); Red Blood Count 2.85 MC/CUMM (3.8-5.5); Red Cell Distribution Width 18.8 % (9.3-17.3); White Blood Count 17.5 T/CUMM (4-12)
[2022-01-09 05:51] LABS: Albumin 1.7 G/DL (3.4-5.0); Bilirubin,Total 3.8 MG/DL (0.20-1.00); Osmolality,Calculated 303.1 MOS/KG (273-304); Potassium 4.9 MMOL/L (3.5-5.1); Total Protein 4.3 G/DL (6.4-8.2)
[2022-01-09 05:55] LABS: Band Neutrophils 1 % (0-10); Hypochromia Slight; Lymphocytes 18 % (20-55); Metamyelocytes 1 %; Microcytosis 1+; Nucleated Red Blood Cells 1 (0-5); Target Cells Slight; Total Cells Counted 100
[2022-01-09 05:56] LABS: Anisocytosis 1+; Platelet Estimate Normal
[2022-01-09] MEDS: LIDOCAINE 5% PATCH TRANSDERM SCH (09:49)
[2022-01-09] MEDS: PANTOPRAZOLE 40 MG VIAL IV SCH ×2 (09:50→21:32)
[2022-01-09] MEDS: MULTIVITAMIN INJ 10 ML in AMINO ACIDS/DEXT/LYTES 5-15% 2,000 ML IV SCH (11:15)
[2022-01-09] MEDS: FAT EMULSION 20% 250 ML IV SCH (16:02)
[2022-01-09 18:00] LABS: Bilirubin,Urine Negative (Negative); Blood, Urine Negative (Negative); Glucose,Urine (UA) Negative (Negative); Ketones,Urine Negative (Negative); Nitrite,Urine Negative (Negative); Protein,Urine Negative (Negative); Urine Appearance Clear (Clear); Urine Color Yellow (Yellow); Urine Specific Gravity 1.015 (1.001-1.035); Urine Urobilinogen 0.2 eU/dL (<2.0); Urine pH 5.5 (4.5-8.0)
[2022-01-09 18:04] LABS: Bacteria,Urine Occasional /HPF (Few); RBC,Urine 1 /HPF (0-4)
[2022-01-10] MEDS: ALBUTEROL/IPRATROPIUM 3 ML NEB RESP TX SCH ×4 (00:07→20:01)
[2022-01-10] MEDS: INSULIN REGULAR 100 UNIT/ML SUBCUT SCH ×4 (00:15→17:15)
[2022-01-10] MEDS: HEPARIN 5,000 UNIT/1 ML VIAL SUBCUT SCH ×3 (01:25→16:55)
[2022-01-10] MEDS: MEROPENEM 500 MG in SODIUM CHLORIDE 0.9% 100 ML IV SCH ×3 (02:21→21:02)
[2022-01-10 04:59] LABS: Basophils # 0.1 10*3/uL (0.0-0.2); Basophils % 0.9 % (0.0-0.8); Eosinophils # 0.4 10*3/uL (0.0-0.87); Eosinophils % 2.5 % (0.00-10.9); Hematocrit 27.2 VOL% (42.0-52.0); Hemoglobin 8.7 GM/DL (14.0-18.0); Immature Granulocytes % 7.5 %; Lymphocytes # 1.7 10*3/uL (1.4-4.0); Lymphocytes % 10.5 % (21.2-54.2); Mean Corpuscular Volume 92.5 FL (87-102); Mean Platelet Volume 13.3 FL (9.6-12.0); Monocytes % 18.7 % (1.7-12.7); NRBC # 0.08 10*3/uL; Neutrophils % 59.9 % (38.7-73.9); Platelet Count 456 T/CUMM (130-400); Red Blood Count 2.94 MC/CUMM (3.8-5.5); Red Cell Distribution Width 17.6 % (9.3-17.3)
[2022-01-10 05:13] LABS: Phosphorous 4.4 MG/DL (2.5-4.9)
[2022-01-10 05:16] LABS: Albumin 1.7 G/DL (3.4-5.0); Bilirubin,Total 4.5 MG/DL (0.20-1.00); Calcium 8.4 MG/DL (8.5-10.1); Osmolality,Calculated 296.5 MOS/KG (273-304); Potassium 4.6 MMOL/L (3.5-5.1); Total Protein 5.1 G/DL (6.4-8.2)
[2022-01-10 05:20] LABS: Band Neutrophils 2 % (0-10); Eosinophils 3 % (0-10); Lymphocytes 4 % (20-55); Platelet Estimate Adequate; Total Cells Counted 100
[2022-01-10] MEDS: MULTIVITAMIN INJ 10 ML in AMINO ACIDS/DEXT/LYTES 5-15% 2,000 ML IV SCH (08:08)
[2022-01-10] MEDS: PANTOPRAZOLE 40 MG VIAL IV SCH ×2 (09:26→21:01)
[2022-01-10] MEDS: LIDOCAINE 5% PATCH TRANSDERM SCH (09:27)
[2022-01-10] MEDS: FAT EMULSION 20% 250 ML IV SCH (16:46)
[2022-01-10] MEDS: ACETAMINOPHEN 325 MG TABLET PO PRN (18:45)
[2022-01-10] MEDS: ONDANSETRON 4 MG/2 ML VIAL IV PRN (19:32)
[2022-01-11] MEDS: ALBUTEROL/IPRATROPIUM 3 ML NEB RESP TX SCH ×4 (01:20→18:50)
[2022-01-11] MEDS: INSULIN REGULAR 100 UNIT/ML SUBCUT SCH ×4 (03:22→18:26)
[2022-01-11] MEDS: HEPARIN 5,000 UNIT/1 ML VIAL SUBCUT SCH ×3 (03:22→17:26)
[2022-01-11] MEDS: ACETAMINOPHEN 325 MG TABLET PO PRN ×3 (04:14→23:54)
[2022-01-11] MEDS: MEROPENEM 500 MG in SODIUM CHLORIDE 0.9% 100 ML IV SCH ×3 (04:15→21:48)
[2022-01-11] MEDS: MULTIVITAMIN INJ 10 ML in AMINO ACIDS/DEXT/LYTES 5-15% 2,000 ML IV SCH (04:20)
[2022-01-11 08:11] LABS: Basophils # 0.2 10*3/uL (0.0-0.2); Basophils % 1.1 % (0.0-0.8); Eosinophils # 0.3 10*3/uL (0.0-0.87); Eosinophils % 1.8 % (0.00-10.9); Hematocrit 29.4 VOL% (42.0-52.0); Immature Granulocytes % 8.5 %; Immature Granulocytes Absolute 1.39 #; Lymphocytes # 1.5 10*3/uL (1.4-4.0); Lymphocytes % 8.9 % (21.2-54.2); Mean Corpuscular HGB Conc 30.6 GM/DL (32-36); Mean Corpuscular Volume 95.5 FL (87-102); Monocytes # 2.5 10*3/uL (0.11-0.8); Monocytes % 15.2 % (1.7-12.7); NRBC # 0.09 10*3/uL; Neutrophils % 64.5 % (38.7-73.9); Platelet Count 493 T/CUMM (130-400); Red Blood Count 3.08 MC/CUMM (3.8-5.5); Red Cell Distribution Width 16.4 % (9.3-17.3); White Blood Count 16.4 T/CUMM (4-12)
[2022-01-11 08:34] LABS: Albumin 1.7 G/DL (3.4-5.0); Bilirubin,Total 4.5 MG/DL (0.20-1.00); Calcium 8.4 MG/DL (8.5-10.1); Osmolality,Calculated 289.8 MOS/KG (273-304); Potassium 5.2 MMOL/L (3.5-5.1); Total Protein 5.4 G/DL (6.4-8.2)
[2022-01-11 08:41] LABS: Band Neutrophils 1 % (0-10); Eosinophils 2 % (0-10); Lymphocytes 6 % (20-55); Total Cells Counted 100
[2022-01-11 08:43] LABS: Hypochromia Slight; Platelet Estimate Adequate
[2022-01-11] MEDS: PANTOPRAZOLE 40 MG VIAL IV SCH ×2 (09:02→21:47)
[2022-01-11] MEDS: LIDOCAINE 5% PATCH TRANSDERM SCH (09:02)
[2022-01-11 12:13] LABS: Amorphous Crystals,Urine Few /HPF (Few); Mucus,Urine Occasional /LPF (Occasional); RBC,Urine 1 /HPF (0-4)
[2022-01-11 12:14] LABS: Bilirubin,Urine Small mg/dL (Negative); Blood, Urine Negative (Negative); Glucose,Urine (UA) Negative (Negative); Ketones,Urine Negative (Negative); Nitrite,Urine Negative (Negative); Protein,Urine Negative (Negative); Urine Appearance Clear (Clear); Urine Color Yellow (Yellow); Urine Specific Gravity 1.015 (1.001-1.035); Urine Urobilinogen 0.2 eU/dL (<2.0); Urine pH 5.5 (4.5-8.0)
[2022-01-11] MEDS: MICAFUNGIN 100 MG in SODIUM CHLORIDE 0.9% 100 ML IV SCH (12:51)
[2022-01-11] MEDS: FAT EMULSION 20% 250 ML IV SCH (17:23)
[2022-01-11] MEDS: ONDANSETRON 4 MG/2 ML VIAL IV PRN (23:48)
[2022-01-12] MEDS: ALBUTEROL/IPRATROPIUM 3 ML NEB RESP TX SCH ×4 (00:03→19:53)
[2022-01-12] MEDS: MULTIVITAMIN INJ 10 ML in AMINO ACIDS/DEXT/LYTES 5-15% 2,000 ML IV SCH (00:40)
[2022-01-12] MEDS: INSULIN REGULAR 100 UNIT/ML SUBCUT SCH ×5 (01:11→23:54)
[2022-01-12] MEDS: HEPARIN 5,000 UNIT/1 ML VIAL SUBCUT SCH ×3 (01:12→18:09)
[2022-01-12] MEDS: MEROPENEM 500 MG in SODIUM CHLORIDE 0.9% 100 ML IV SCH ×3 (04:29→20:20)
[2022-01-12] MEDS: ACETAMINOPHEN 325 MG TABLET PO PRN ×2 (05:17→13:59)
[2022-01-12 05:21] LABS: Basophils # 0.2 10*3/uL (0.0-0.2); Basophils % 1.5 % (0.0-0.8); Eosinophils # 0.1 10*3/uL (0.0-0.87); Eosinophils % 0.8 % (0.00-10.9); Hematocrit 31.6 VOL% (42.0-52.0); Hemoglobin 9.6 GM/DL (14.0-18.0); Immature Granulocytes % 10.2 %; Immature Granulocytes Absolute 1.62 #; Lymphocytes # 1.1 10*3/uL (1.4-4.0); Lymphocytes % 7.1 % (21.2-54.2); Mean Corpuscular HGB Conc 30.4 GM/DL (32-36); Mean Corpuscular Volume 96.6 FL (87-102); Mean Platelet Volume 12.9 FL (9.6-12.0); Monocytes # 1.9 10*3/uL (0.11-0.8); Monocytes % 12.1 % (1.7-12.7); NRBC # 0.11 10*3/uL; Neutrophils % 68.3 % (38.7-73.9); Platelet Count 553 T/CUMM (130-400); Red Blood Count 3.27 MC/CUMM (3.8-5.5); Red Cell Distribution Width 15.8 % (9.3-17.3); White Blood Count 15.8 T/CUMM (4-12)
[2022-01-12 05:39] LABS: Albumin 1.7 G/DL (3.4-5.0); Calcium 8.4 MG/DL (8.5-10.1); Calcium 8.6 MG/DL (8.5-10.1); Osmolality,Calculated 289.8 MOS/KG (273-304); Potassium 5.4 MMOL/L (3.5-5.1); Potassium 5.5 MMOL/L (3.5-5.1); Total Protein 5.6 G/DL (6.4-8.2)
[2022-01-12 05:44] LABS: Eosinophils 2 % (0-10); Lymphocytes 7 % (20-55); Platelet Estimate Adequate; Total Cells Counted 100
[2022-01-12 05:45] LABS: Hypochromia Slight
[2022-01-12] MEDS ORDERED: SODIUM BICARB INJ 50 MEQ in SODIUM CHLORIDE 0.45% 1,000 ML IV SCH (07:30)
[2022-01-12] MEDS: LIDOCAINE 5% PATCH TRANSDERM SCH (09:45)
[2022-01-12] MEDS: PANTOPRAZOLE 40 MG VIAL IV SCH ×2 (09:45→20:20)
[2022-01-12] MEDS: MICAFUNGIN 100 MG in SODIUM CHLORIDE 0.9% 100 ML IV SCH (12:31)
[2022-01-12] MEDS: ONDANSETRON 4 MG/2 ML VIAL IV PRN ×2 (14:55→20:18)
[2022-01-12 15:32] LABS: Albumin 1.7 G/DL (3.4-5.0); Calcium 8.3 MG/DL (8.5-10.1); Osmolality,Calculated 284.2 MOS/KG (273-304); Phosphorous 4.5 MG/DL (2.5-4.9); Potassium 5.6 MMOL/L (3.5-5.1)
[2022-01-12] MEDS: MULTIVITAMIN INJ 10 ML in AMINO ACIDS/DEXT/LYTES 4.25-5% 2,000 ML IV SCH (18:09)
[2022-01-13] MEDS: ALBUTEROL/IPRATROPIUM 3 ML NEB RESP TX SCH ×4 (00:32→18:55)
[2022-01-13] MEDS: HEPARIN 5,000 UNIT/1 ML VIAL SUBCUT SCH ×3 (01:02→18:20)
[2022-01-13] MEDS: MEROPENEM 500 MG in SODIUM CHLORIDE 0.9% 100 ML IV SCH ×3 (05:54→20:30)
[2022-01-13] MEDS: INSULIN REGULAR 100 UNIT/ML SUBCUT SCH ×4 (05:59→23:28)
[2022-01-13 06:03] LABS: Basophils # 0.2 10*3/uL (0.0-0.2); Eosinophils # 0.1 10*3/uL (0.0-0.87); Eosinophils % 0.3 % (0.00-10.9); Hematocrit 30.9 VOL% (42.0-52.0); Hemoglobin 9.4 GM/DL (14.0-18.0); Immature Granulocytes % 8.4 %; Immature Granulocytes Absolute 1.33 #; Lymphocytes # 1.5 10*3/uL (1.4-4.0); Lymphocytes % 9.5 % (21.2-54.2); Mean Corpuscular HGB Conc 30.4 GM/DL (32-36); Mean Corpuscular Volume 95.4 FL (87-102); Mean Platelet Volume 13.2 FL (9.6-12.0); Monocytes # 2.2 10*3/uL (0.11-0.8); Monocytes % 13.9 % (1.7-12.7); NRBC # 0.19 10*3/uL; Neutrophils % 66.9 % (38.7-73.9); Platelet Count 473 T/CUMM (130-400); Red Blood Count 3.24 MC/CUMM (3.8-5.5); Red Cell Distribution Width 15.1 % (9.3-17.3); White Blood Count 15.8 T/CUMM (4-12)
[2022-01-13 06:20] LABS: Calcium 8.1 MG/DL (8.5-10.1); Osmolality,Calculated 281.5 MOS/KG (273-304); Potassium 5.6 MMOL/L (3.5-5.1)
[2022-01-13 06:27] LABS: Band Neutrophils 2 % (0-10); Eosinophils 2 % (0-10); Lymphocytes 7 % (20-55); Platelet Estimate Adequate; Total Cells Counted 100
[2022-01-13 06:35] LABS: Phosphorous 4.1 MG/DL (2.5-4.9)
[2022-01-13] MEDS ORDERED: SODIUM BICARBONATE 50 MEQ/50 ML VIAL IV SCH (09:00)
[2022-01-13] MEDS: BACILLUS COAGULANS CAPLET PO SCH (09:54)
[2022-01-13] MEDS: MICAFUNGIN 100 MG in SODIUM CHLORIDE 0.9% 100 ML IV SCH (09:56)
[2022-01-13] MEDS: PANTOPRAZOLE 40 MG VIAL IV SCH ×2 (09:56→20:30)
[2022-01-13] MEDS: LIDOCAINE 5% PATCH TRANSDERM SCH (09:57)
[2022-01-13] MEDS: MULTIVITAMIN INJ 10 ML in AMINO ACIDS/DEXT/LYTES 4.25-5% 2,000 ML IV SCH (12:59)
[2022-01-13] MEDS: SODIUM BICARB INJ 50 MEQ in IV BAG 1 EACH IV SCH (12:59)
[2022-01-13] MEDS: METOPROLOL TARTRATE 50 MG TABLET PO SCH (20:26)
[2022-01-13] MEDS: ACETAMINOPHEN 325 MG TABLET PO PRN (20:27)
[2022-01-14] MEDS: ALBUTEROL/IPRATROPIUM 3 ML NEB RESP TX SCH ×4 (00:28→19:55)
[2022-01-14] MEDS: HEPARIN 5,000 UNIT/1 ML VIAL SUBCUT SCH ×3 (00:29→17:31)
[2022-01-14] MEDS: SODIUM BICARB INJ 50 MEQ in IV BAG 1 EACH IV SCH ×2 (00:34→12:08)
[2022-01-14 05:28] LABS: Basophils # 0.1 10*3/uL (0.0-0.2); Basophils % 0.7 % (0.0-0.8); Eosinophils # 0.3 10*3/uL (0.0-0.87); Eosinophils % 1.7 % (0.00-10.9); Hematocrit 33.8 VOL% (42.0-52.0); Hemoglobin 10.4 GM/DL (14.0-18.0); Immature Granulocytes % 4.1 %; Immature Granulocytes Absolute 0.69 #; Lymphocytes # 1.8 10*3/uL (1.4-4.0); Lymphocytes % 10.7 % (21.2-54.2); Mean Corpuscular HGB Conc 30.8 GM/DL (32-36); Mean Corpuscular Volume 95.2 FL (87-102); Mean Platelet Volume 13.4 FL (9.6-12.0); Monocytes # 3.3 10*3/uL (0.11-0.8); Monocytes % 19.4 % (1.7-12.7); NRBC # 0.16 10*3/uL; Neutrophils % 63.4 % (38.7-73.9); Platelet Count 677 T/CUMM (130-400); Red Blood Count 3.55 MC/CUMM (3.8-5.5); White Blood Count 16.8 T/CUMM (4-12)
[2022-01-14 05:51] LABS: Albumin 1.5 G/DL (3.4-5.0); Bilirubin,Total 3.4 MG/DL (0.20-1.00); Calcium 8.4 MG/DL (8.5-10.1); Osmolality,Calculated 285.2 MOS/KG (273-304); Potassium 5.5 MMOL/L (3.5-5.1); Total Protein 5.8 G/DL (6.4-8.2)
[2022-01-14 05:55] LABS: Band Neutrophils 1 % (0-10); Eosinophils 2 % (0-10); Lymphocytes 8 % (20-55); Platelet Estimate Adequate; Total Cells Counted 100
[2022-01-14] MEDS: INSULIN REGULAR 100 UNIT/ML SUBCUT SCH ×4 (05:56→23:59)
[2022-01-14] MEDS: MEROPENEM 500 MG in SODIUM CHLORIDE 0.9% 100 ML IV SCH ×2 (06:01→16:21)
[2022-01-14] MEDS: METOPROLOL TARTRATE 50 MG TABLET PO SCH ×2 (10:04→20:36)
[2022-01-14] MEDS: BACILLUS COAGULANS CAPLET PO SCH (10:04)
[2022-01-14] MEDS: MICAFUNGIN 100 MG in SODIUM CHLORIDE 0.9% 100 ML IV SCH (10:05)
[2022-01-14] MEDS: LIDOCAINE 5% PATCH TRANSDERM SCH (10:05)
[2022-01-14] MEDS: PANTOPRAZOLE 40 MG VIAL IV SCH ×2 (10:05→20:39)
[2022-01-14] MEDS: guaiFENesin/DM ER 600-30 MG TABLET PO PRN (12:08)
[2022-01-14] MEDS: ONDANSETRON 4 MG/2 ML VIAL IV PRN (12:08)
[2022-01-14] MEDS: MULTIVITAMIN INJ 10 ML in AMINO ACIDS/DEXT/LYTES 4.25-5% 2,000 ML IV SCH (15:15)
[2022-01-14] MEDS ORDERED: MORPHINE 2 MG/1 ML SYRINGE IV PRN (15:22)
[2022-01-14] MEDS ORDERED: oxyCODONE/ACETAMINOPHEN 5-325 MG TABLET PO PRN (15:23)
[2022-01-15] MEDS: HEPARIN 5,000 UNIT/1 ML VIAL SUBCUT SCH ×3 (00:04→17:16)
[2022-01-15] MEDS: ALBUTEROL/IPRATROPIUM 3 ML NEB RESP TX SCH ×4 (00:08→19:43)
[2022-01-15] MEDS: SODIUM BICARB INJ 50 MEQ in IV BAG 1 EACH IV SCH (00:08)
[2022-01-15 06:03] LABS: Basophils # 0.1 10*3/uL (0.0-0.2); Basophils % 0.8 % (0.0-0.8); Eosinophils # 0.4 10*3/uL (0.0-0.87); Eosinophils % 2.5 % (0.00-10.9); Hematocrit 32.6 VOL% (42.0-52.0); Hemoglobin 9.9 GM/DL (14.0-18.0); Immature Granulocytes % 4.5 %; Immature Granulocytes Absolute 0.69 #; Lymphocytes # 2.3 10*3/uL (1.4-4.0); Lymphocytes % 14.9 % (21.2-54.2); Mean Corpuscular HGB Conc 30.4 GM/DL (32-36); Mean Corpuscular Volume 94.8 FL (87-102); Monocytes % 19.3 % (1.7-12.7); NRBC # 0.09 10*3/uL; Platelet Count 778 T/CUMM (130-400); Red Blood Count 3.44 MC/CUMM (3.8-5.5); Red Cell Distribution Width 15.4 % (9.3-17.3); White Blood Count 15.4 T/CUMM (4-12)
[2022-01-15 06:28] LABS: Albumin 1.7 G/DL (3.4-5.0); Bilirubin,Total 3.3 MG/DL (0.20-1.00); Calcium 8.6 MG/DL (8.5-10.1); Osmolality,Calculated 283.2 MOS/KG (273-304); Potassium 5.4 MMOL/L (3.5-5.1); Total Protein 5.8 G/DL (6.4-8.2)
[2022-01-15 06:32] LABS: Lymphocytes 23 % (20-55); Platelet Estimate Increased; Total Cells Counted 100
[2022-01-15] MEDS: INSULIN REGULAR 100 UNIT/ML SUBCUT SCH ×3 (06:36→18:02)
[2022-01-15] MEDS: MICAFUNGIN 100 MG in SODIUM CHLORIDE 0.9% 100 ML IV SCH (09:11)
[2022-01-15] MEDS: METOPROLOL TARTRATE 50 MG TABLET PO SCH ×2 (09:12→20:58)
[2022-01-15] MEDS: BACILLUS COAGULANS CAPLET PO SCH (09:12)
[2022-01-15] MEDS: PANTOPRAZOLE 40 MG VIAL IV SCH ×2 (09:12→21:00)
[2022-01-15] MEDS: LIDOCAINE 5% PATCH TRANSDERM SCH (10:52)
[2022-01-15] MEDS ORDERED: ACETAMINOPHEN 325 MG TABLET PO PRN (17:00)
[2022-01-15] MEDS: ONDANSETRON 4 MG/2 ML VIAL IV PRN (21:44)
[2022-01-16] MEDS: HEPARIN 5,000 UNIT/1 ML VIAL SUBCUT SCH ×3 (00:30→16:21)
[2022-01-16] MEDS: ALBUTEROL/IPRATROPIUM 3 ML NEB RESP TX SCH ×4 (00:45→19:18)
[2022-01-16 05:47] LABS: Albumin 1.7 G/DL (3.4-5.0); Bilirubin,Total 3.1 MG/DL (0.20-1.00); Calcium 8.2 MG/DL (8.5-10.1); Potassium 5.2 MMOL/L (3.5-5.1); Total Protein 5.8 G/DL (6.4-8.2)
[2022-01-16] MEDS: INSULIN REGULAR 100 UNIT/ML SUBCUT SCH ×4 (06:16→18:26)
[2022-01-16 08:30] LABS: Basophils # 0.2 10*3/uL (0.0-0.2); Eosinophils # 0.6 10*3/uL (0.0-0.87); Eosinophils % 3.6 % (0.00-10.9); Hematocrit 32.2 VOL% (42.0-52.0); Hemoglobin 9.8 GM/DL (14.0-18.0); Immature Granulocytes % 6.8 %; Immature Granulocytes Absolute 1.12 #; Lymphocytes # 2.5 10*3/uL (1.4-4.0); Lymphocytes % 15.1 % (21.2-54.2); Mean Corpuscular HGB Conc 30.4 GM/DL (32-36); Mean Corpuscular Volume 96.7 FL (87-102); Mean Platelet Volume 13.2 FL (9.6-12.0); Monocytes # 2.6 10*3/uL (0.11-0.8); Monocytes % 15.9 % (1.7-12.7); NRBC # 0.02 10*3/uL; Neutrophils % 57.6 % (38.7-73.9); Platelet Count 890 T/CUMM (130-400); Red Blood Count 3.33 MC/CUMM (3.8-5.5); Red Cell Distribution Width 15.5 % (9.3-17.3); White Blood Count 16.5 T/CUMM (4-12)
[2022-01-16 09:09] LABS: Band Neutrophils 2 % (0-10); Eosinophils 4 % (0-10); Lymphocytes 10 % (20-55); Myelocytes 1 %; Total Cells Counted 100
[2022-01-16 09:11] LABS: Anisocytosis Slight; Burr Cells Slight; Stomatocytes Slight; Target Cells Slight
[2022-01-16 09:12] LABS: Platelet Estimate Increased
[2022-01-16] MEDS: BACILLUS COAGULANS CAPLET PO SCH (10:35)
[2022-01-16] MEDS: MICAFUNGIN 100 MG in SODIUM CHLORIDE 0.9% 100 ML IV SCH (10:35)
[2022-01-16] MEDS: METOPROLOL TARTRATE 50 MG TABLET PO SCH ×2 (10:35→21:01)
[2022-01-16] MEDS: PANTOPRAZOLE 40 MG VIAL IV SCH ×2 (10:35→21:04)
[2022-01-16] MEDS: LIDOCAINE 5% PATCH TRANSDERM SCH (11:27)
[2022-01-17] MEDS: HEPARIN 5,000 UNIT/1 ML VIAL SUBCUT SCH ×3 (00:11→17:10)
[2022-01-17] MEDS: INSULIN REGULAR 100 UNIT/ML SUBCUT SCH ×4 (00:11→19:09)
[2022-01-17] MEDS: ALBUTEROL/IPRATROPIUM 3 ML NEB RESP TX SCH ×4 (00:55→19:27)
[2022-01-17 06:20] LABS: Basophils # 0.2 10*3/uL (0.0-0.2); Basophils % 0.7 % (0.0-0.8); Eosinophils # 0.7 10*3/uL (0.0-0.87); Eosinophils % 3.2 % (0.00-10.9); Hematocrit 31.8 VOL% (42.0-52.0); Hemoglobin 9.6 GM/DL (14.0-18.0); Immature Granulocytes % 11.9 %; Immature Granulocytes Absolute 2.57 #; Lymphocytes # 2.8 10*3/uL (1.4-4.0); Lymphocytes % 13.2 % (21.2-54.2); Mean Corpuscular HGB Conc 30.2 GM/DL (32-36); Mean Corpuscular Volume 96.1 FL (87-102); Mean Platelet Volume 12.3 FL (9.6-12.0); Monocytes # 2.9 10*3/uL (0.11-0.8); Monocytes % 13.6 % (1.7-12.7); NRBC # 0.03 10*3/uL; Neutrophils % 57.4 % (38.7-73.9); Red Blood Count 3.31 MC/CUMM (3.8-5.5); Red Cell Distribution Width 15.4 % (9.3-17.3); White Blood Count 21.5 T/CUMM (4-12)
[2022-01-17 06:23] LABS: Platelet Count 1000 T/CUMM (130-400)
[2022-01-17 06:34] LABS: Phosphorous 3.9 MG/DL (2.5-4.9)
[2022-01-17 06:38] LABS: Albumin 1.9 G/DL (3.4-5.0); Bilirubin,Total 3.1 MG/DL (0.20-1.00); Calcium 8.3 MG/DL (8.5-10.1); Potassium 5.4 MMOL/L (3.5-5.1); Total Protein 6.2 G/DL (6.4-8.2)
[2022-01-17 06:48] LABS: Eosinophils 3 % (0-10); Lymphocytes 14 % (20-55); Macrocytosis Slight; Metamyelocytes 2 %; Myelocytes 1 %; Nucleated Red Blood Cells 1 (0-5); Promyelocytes 1 %; Total Cells Counted 100
[2022-01-17 06:49] LABS: Hypochromia Slight; Polychromasia Slight
[2022-01-17] MEDS: MICAFUNGIN 100 MG in SODIUM CHLORIDE 0.9% 100 ML IV SCH (09:14)
[2022-01-17] MEDS: BACILLUS COAGULANS CAPLET PO SCH (09:15)
[2022-01-17] MEDS: METOPROLOL TARTRATE 50 MG TABLET PO SCH ×2 (09:15→21:21)
[2022-01-17] MEDS: OMEPRAZOLE ODT 20 MG TABLET PEG SCH ×2 (09:15→21:21)
[2022-01-17] MEDS: LIDOCAINE 5% PATCH TRANSDERM SCH (09:31)
[2022-01-17] MEDS: SODIUM POLYSTYRENE SULFATE 15 GM/60 ML BOTTLE PO SCH ×3 (11:21→22:36)
[2022-01-18] MEDS: ALBUTEROL/IPRATROPIUM 3 ML NEB RESP TX SCH ×4 (00:27→19:15)
[2022-01-18] MEDS: INSULIN REGULAR 100 UNIT/ML SUBCUT SCH ×4 (01:06→18:18)
[2022-01-18] MEDS: HEPARIN 5,000 UNIT/1 ML VIAL SUBCUT SCH ×3 (02:31→18:16)
[2022-01-18] MEDS: SODIUM POLYSTYRENE SULFATE 15 GM/60 ML BOTTLE PO SCH ×4 (03:26→20:40)
[2022-01-18 05:51] LABS: Basophils # 0.2 10*3/uL (0.0-0.2); Basophils % 0.7 % (0.0-0.8); Eosinophils # 0.9 10*3/uL (0.0-0.87); Eosinophils % 3.9 % (0.00-10.9); Hematocrit 30.9 VOL% (42.0-52.0); Hemoglobin 9.3 GM/DL (14.0-18.0); Immature Granulocytes % 15.1 %; Immature Granulocytes Absolute 3.57 #; Lymphocytes # 3.4 10*3/uL (1.4-4.0); Lymphocytes % 14.2 % (21.2-54.2); Mean Corpuscular HGB Conc 30.1 GM/DL (32-36); Mean Platelet Volume 12.1 FL (9.6-12.0); Monocytes # 2.9 10*3/uL (0.11-0.8); Monocytes % 12.4 % (1.7-12.7); NRBC # 0.04 10*3/uL; Neutrophils % 53.7 % (38.7-73.9); Red Blood Count 3.22 MC/CUMM (3.8-5.5); Red Cell Distribution Width 15.9 % (9.3-17.3); White Blood Count 23.6 T/CUMM (4-12)
[2022-01-18 05:54] LABS: Platelet Count 1150 T/CUMM (130-400)
[2022-01-18 05:56] LABS: Calcium 8.1 MG/DL (8.5-10.1); Osmolality,Calculated 283.7 MOS/KG (273-304)
[2022-01-18 06:15] LABS: Band Neutrophils 2 % (0-10); Eosinophils 3 % (0-10); Hypochromia Slight; Lymphocytes 7 % (20-55); Microcytosis Slight; Platelet Estimate Increased; Total Cells Counted 100
[2022-01-18 08:53] LABS: % Iron Saturation 14.2 % (18-50)
[2022-01-18] MEDS: BACILLUS COAGULANS CAPLET PO SCH (10:14)
[2022-01-18] MEDS: METOPROLOL TARTRATE 50 MG TABLET PO SCH ×2 (10:14→20:38)
[2022-01-18] MEDS: OMEPRAZOLE ODT 20 MG TABLET PEG SCH ×2 (10:14→20:41)
[2022-01-18] MEDS: MICAFUNGIN 100 MG in SODIUM CHLORIDE 0.9% 100 ML IV SCH (10:15)
[2022-01-18] MEDS: LIDOCAINE 5% PATCH TRANSDERM SCH (10:15)
[2022-01-18] MEDS: CHOLECALCIFEROL 1,000 UNIT TABLET PO SCH (10:17)
[2022-01-18] MEDS: FERROUS SULFATE 300 MG/5 ML UDCUP PO SCH (20:38)
[2022-01-19] MEDS: INSULIN REGULAR 100 UNIT/ML SUBCUT SCH ×4 (00:29→20:53)
[2022-01-19] MEDS: ALBUTEROL/IPRATROPIUM 3 ML NEB RESP TX SCH ×4 (00:53→19:06)
[2022-01-19] MEDS: HEPARIN 5,000 UNIT/1 ML VIAL SUBCUT SCH ×3 (02:40→16:24)
[2022-01-19] MEDS: SODIUM POLYSTYRENE SULFATE 15 GM/60 ML BOTTLE PO SCH (02:40)
[2022-01-19 05:52] LABS: Calcium 8.6 MG/DL (8.5-10.1); Osmolality,Calculated 276.1 MOS/KG (273-304); Potassium 4.7 MMOL/L (3.5-5.1)
[2022-01-19 06:02] LABS: Albumin 1.9 G/DL (3.4-5.0); Bilirubin,Direct 1.84 MG/DL (0.0-0.20); Bilirubin,Indirect 0.5 MG/DL (0.0-1.0); Bilirubin,Total 2.3 MG/DL (0.20-1.00); Total Protein 6.3 G/DL (6.4-8.2)
[2022-01-19] MEDS: BACILLUS COAGULANS CAPLET PO SCH (08:01)
[2022-01-19] MEDS: guaiFENesin/DM ER 600-30 MG TABLET PO PRN (08:01)
[2022-01-19] MEDS: FERROUS SULFATE 300 MG/5 ML UDCUP PO SCH ×2 (08:02→20:51)
[2022-01-19] MEDS: METOPROLOL TARTRATE 50 MG TABLET PO SCH ×2 (08:02→20:49)
[2022-01-19] MEDS: CHOLECALCIFEROL 1,000 UNIT TABLET PO SCH (08:02)
[2022-01-19] MEDS: OMEPRAZOLE ODT 20 MG TABLET PEG SCH ×2 (08:02→20:49)
[2022-01-19] MEDS: LIDOCAINE 5% PATCH TRANSDERM SCH (08:03)
[2022-01-19] MEDS: MICAFUNGIN 100 MG in SODIUM CHLORIDE 0.9% 100 ML IV SCH (08:04)
[2022-01-19 08:25] LABS: Basophils # 0.3 10*3/uL (0.0-0.2); Basophils % 1.1 % (0.0-0.8); Eosinophils % 4.2 % (0.00-10.9); Hematocrit 30.4 VOL% (42.0-52.0); Hemoglobin 9.3 GM/DL (14.0-18.0); Immature Granulocytes % 15.6 %; Immature Granulocytes Absolute 3.82 #; Lymphocytes # 3.4 10*3/uL (1.4-4.0); Lymphocytes % 13.7 % (21.2-54.2); Mean Corpuscular HGB Conc 30.6 GM/DL (32-36); Mean Corpuscular Volume 94.7 FL (87-102); Mean Platelet Volume 11.1 FL (9.6-12.0); Monocytes # 2.9 10*3/uL (0.11-0.8); Monocytes % 11.9 % (1.7-12.7); NRBC # 0.03 10*3/uL; Neutrophils % 53.5 % (38.7-73.9); Red Blood Count 3.21 MC/CUMM (3.8-5.5); Red Cell Distribution Width 15.9 % (9.3-17.3); White Blood Count 24.5 T/CUMM (4-12)
[2022-01-19 08:28] LABS: Platelet Count 1246 T/CUMM (130-400)
[2022-01-19 08:46] LABS: Band Neutrophils 5 % (0-10); Eosinophils 8 % (0-10); Hypochromia Slight; Lymphocytes 14 % (20-55); Platelet Estimate Increased; Total Cells Counted 100
[2022-01-20] MEDS: HEPARIN 5,000 UNIT/1 ML VIAL SUBCUT SCH ×3 (00:57→17:31)
[2022-01-20 05:57] LABS: Basophils # 0.5 10*3/uL (0.0-0.2); Eosinophils # 0.9 10*3/uL (0.0-0.87); Eosinophils % 3.7 % (0.00-10.9); Hematocrit 34.1 VOL% (42.0-52.0); Hemoglobin 10.2 GM/DL (14.0-18.0); Immature Granulocytes % 14.4 %; Immature Granulocytes Absolute 3.53 #; Lymphocytes # 3.8 10*3/uL (1.4-4.0); Lymphocytes % 15.4 % (21.2-54.2); Mean Corpuscular HGB Conc 29.9 GM/DL (32-36); Mean Corpuscular Volume 96.6 FL (87-102); Mean Platelet Volume 11.2 FL (9.6-12.0); NRBC # 0.03 10*3/uL; Neutrophils % 52.5 % (38.7-73.9); Red Blood Count 3.53 MC/CUMM (3.8-5.5); Red Cell Distribution Width 15.9 % (9.3-17.3); White Blood Count 24.5 T/CUMM (4-12)
[2022-01-20 06:03] LABS: Platelet Count 1406 T/CUMM (130-400)
[2022-01-20 06:20] LABS: Band Neutrophils 1 % (0-10); Eosinophils 7 % (0-10); Lymphocytes 16 % (20-55); Metamyelocytes 3 %; Myelocytes 2 %; Nucleated Red Blood Cells 1 (0-5); Total Cells Counted 100
[2022-01-20 06:21] LABS: Hypochromia 1+; Microcytosis Slight; Target Cells Slight
[2022-01-20] MEDS: INSULIN REGULAR 100 UNIT/ML SUBCUT SCH ×4 (06:27→17:31)
[2022-01-20] MEDS: ALBUTEROL/IPRATROPIUM 3 ML NEB RESP TX SCH ×4 (06:55→18:55)
[2022-01-20 08:16] LABS: Osmolality,Calculated 274.1 MOS/KG (273-304)
[2022-01-20] MEDS: BACILLUS COAGULANS CAPLET PO SCH (08:55)
[2022-01-20] MEDS: FERROUS SULFATE 300 MG/5 ML UDCUP PO SCH (08:55)
[2022-01-20] MEDS: LIDOCAINE 5% PATCH TRANSDERM SCH (08:59)
[2022-01-20] MEDS: OMEPRAZOLE ODT 20 MG TABLET PEG SCH ×2 (09:00→20:29)
[2022-01-20] MEDS: CHOLECALCIFEROL 1,000 UNIT TABLET PO SCH (09:00)
[2022-01-20] MEDS: METOPROLOL TARTRATE 50 MG TABLET PO SCH ×2 (09:00→20:30)
[2022-01-20] MEDS ORDERED: INSULIN REGULAR 10 UNIT, CALCIUM GLUCONATE 1,000 MG in DEXTROSE 10% 250 ML IV ONE (09:30)
[2022-01-20] MEDS: MICAFUNGIN 100 MG in SODIUM CHLORIDE 0.9% 100 ML IV SCH ×2 (11:34→14:50)
[2022-01-20] MEDS ORDERED: SODIUM POLYSTYRENE SULFATE 15 GM/60 ML BOTTLE PO ONE (12:30)
[2022-01-20] MEDS: SODIUM ZIRCONIUM CYCLOSILICATE 10 GM PACK PO SCH (20:29)
[2022-01-20] MEDS: FERROUS SULFATE 325 MG TABLET PO SCH (20:30)
[2022-01-21] MEDS: INSULIN REGULAR 100 UNIT/ML SUBCUT SCH ×4 (00:25→17:23)
[2022-01-21] MEDS: HEPARIN 5,000 UNIT/1 ML VIAL SUBCUT SCH ×3 (00:40→17:22)
[2022-01-21] MEDS: ALBUTEROL/IPRATROPIUM 3 ML NEB RESP TX SCH ×4 (00:50→19:35)
[2022-01-21 04:58] LABS: Basophils # 0.3 10*3/uL (0.0-0.2); Basophils % 1.3 % (0.0-0.8); Eosinophils # 0.6 10*3/uL (0.0-0.87); Eosinophils % 2.2 % (0.00-10.9); Immature Granulocytes % 8.8 %; Lymphocytes # 3.5 10*3/uL (1.4-4.0); Lymphocytes % 14.1 % (21.2-54.2); Mean Corpuscular HGB Conc 30.3 GM/DL (32-36); Mean Corpuscular Volume 94.3 FL (87-102); Mean Platelet Volume 10.7 FL (9.6-12.0); Monocytes # 3.1 10*3/uL (0.11-0.8); Monocytes % 12.4 % (1.7-12.7); NRBC # 0.02 10*3/uL; Neutrophils % 61.2 % (38.7-73.9); Red Cell Distribution Width 15.6 % (9.3-17.3); White Blood Count 24.9 T/CUMM (4-12)
[2022-01-21] MEDS: ONDANSETRON 4 MG/2 ML VIAL IV PRN (04:58)
[2022-01-21 05:00] LABS: Platelet Count 1440 T/CUMM (130-400)
[2022-01-21 05:09] LABS: Calcium 9.7 MG/DL (8.5-10.1); Osmolality,Calculated 273.2 MOS/KG (273-304); Potassium 5.1 MMOL/L (3.5-5.1)
[2022-01-21 05:16] LABS: Albumin 2.1 G/DL (3.4-5.0); Bilirubin,Direct 1.82 MG/DL (0.0-0.20); Bilirubin,Indirect 0.7 MG/DL (0.0-1.0); Bilirubin,Total 2.5 MG/DL (0.20-1.00)
[2022-01-21 05:55] LABS: Eosinophils 2 % (0-10); Lymphocytes 18 % (20-55); Platelet Estimate Increased; Target Cells 1+; Total Cells Counted 100
[2022-01-21] MEDS: SODIUM ZIRCONIUM CYCLOSILICATE 10 GM PACK PO SCH ×3 (08:23→21:24)
[2022-01-21] MEDS: FERROUS SULFATE 325 MG TABLET PO SCH ×2 (08:23→21:24)
[2022-01-21] MEDS: BACILLUS COAGULANS CAPLET PO SCH (08:23)
[2022-01-21] MEDS: LIDOCAINE 5% PATCH TRANSDERM SCH (08:23)
[2022-01-21] MEDS: METOPROLOL TARTRATE 50 MG TABLET PO SCH ×2 (08:23→21:24)
[2022-01-21] MEDS: OMEPRAZOLE ODT 20 MG TABLET PEG SCH ×2 (08:24→21:24)
[2022-01-21] MEDS: CHOLECALCIFEROL 1,000 UNIT TABLET PO SCH (08:25)
[2022-01-21] MEDS: MICAFUNGIN 100 MG in SODIUM CHLORIDE 0.9% 100 ML IV SCH (08:26)
[2022-01-21] MEDS: METOCLOPRAMIDE 10 MG/2 ML VIAL IV SCH ×3 (08:49→21:23)
[2022-01-21] MEDS: ONDANSETRON 4 MG/2 ML VIAL IV SCH ×3 (12:16→21:24)
[2022-01-21] MEDS ORDERED: DEXTROSE 10% 1,000 ML IV PRN (17:00)
[2022-01-21] MEDS ORDERED: STERILE WATER IV SCH (17:00)
[2022-01-21] MEDS ORDERED: MULTIVITAMIN IV SCH (17:00)
[2022-01-21] MEDS ORDERED: [UNRECOGNIZED DRUG - OTHER] IV SCH (17:00)
[2022-01-21] MEDS ORDERED: AMINO ACIDS IV SCH (17:00)
[2022-01-22] MEDS: ALBUTEROL/IPRATROPIUM 3 ML NEB RESP TX SCH ×4 (00:25→19:37)
[2022-01-22] MEDS: ONDANSETRON 4 MG/2 ML VIAL IV SCH ×6 (00:58→18:10)
[2022-01-22] MEDS: INSULIN REGULAR 100 UNIT/ML SUBCUT SCH ×4 (01:40→17:00)
[2022-01-22] MEDS: HEPARIN 5,000 UNIT/1 ML VIAL SUBCUT SCH ×3 (02:40→16:05)
[2022-01-22] MEDS: METOCLOPRAMIDE 10 MG/2 ML VIAL IV SCH ×4 (02:41→21:32)
[2022-01-22 06:10] LABS: Basophils # 0.3 10*3/uL (0.0-0.2); Basophils % 1.1 % (0.0-0.8); Eosinophils # 0.6 10*3/uL (0.0-0.87); Eosinophils % 2.3 % (0.00-10.9); Hematocrit 31.4 VOL% (42.0-52.0); Hemoglobin 9.7 GM/DL (14.0-18.0); Immature Granulocytes % 5.9 %; Immature Granulocytes Absolute 1.43 #; Lymphocytes # 3.1 10*3/uL (1.4-4.0); Lymphocytes % 12.9 % (21.2-54.2); Mean Corpuscular HGB Conc 30.9 GM/DL (32-36); Mean Corpuscular Volume 92.9 FL (87-102); Mean Platelet Volume 10.5 FL (9.6-12.0); Monocytes # 3.3 10*3/uL (0.11-0.8); Monocytes % 13.8 % (1.7-12.7); Red Blood Count 3.38 MC/CUMM (3.8-5.5); Red Cell Distribution Width 15.4 % (9.3-17.3); White Blood Count 24.1 T/CUMM (4-12)
[2022-01-22 06:15] LABS: Platelet Count 1272 T/CUMM (130-400)
[2022-01-22 06:27] LABS: Calcium 9.5 MG/DL (8.5-10.1); Osmolality,Calculated 276.1 MOS/KG (273-304); Phosphorous 4.5 MG/DL (2.5-4.9); Potassium 4.5 MMOL/L (3.5-5.1)
[2022-01-22 06:29] LABS: Eosinophils 3 % (0-10); Hypochromia Slight; Lymphocytes 12 % (20-55); Nucleated Red Blood Cells 1 (0-5); Platelet Estimate Increased; Total Cells Counted 100
[2022-01-22 06:36] LABS: Albumin 2.1 G/DL (3.4-5.0); Bilirubin,Direct 1.85 MG/DL (0.0-0.20); Bilirubin,Indirect 0.5 MG/DL (0.0-1.0); Bilirubin,Total 2.3 MG/DL (0.20-1.00); Total Protein 6.8 G/DL (6.4-8.2)
[2022-01-22 06:50] LABS: Calcium 9.7 MG/DL (8.5-10.1); Osmolality,Calculated 273.4 MOS/KG (273-304); Potassium 4.5 MMOL/L (3.5-5.1)
[2022-01-22] MEDS: SODIUM ZIRCONIUM CYCLOSILICATE 10 GM PACK PO SCH ×2 (08:51→14:16)
[2022-01-22] MEDS: guaiFENesin/DM ER 600-30 MG TABLET PO PRN (08:52)
[2022-01-22] MEDS: BACILLUS COAGULANS CAPLET PO SCH (08:52)
[2022-01-22] MEDS: FERROUS SULFATE 325 MG TABLET PO SCH ×2 (08:53→21:30)
[2022-01-22] MEDS: CHOLECALCIFEROL 1,000 UNIT TABLET PO SCH (08:53)
[2022-01-22] MEDS: OMEPRAZOLE ODT 20 MG TABLET PEG SCH ×2 (08:53→21:31)
[2022-01-22] MEDS: METOPROLOL TARTRATE 50 MG TABLET PO SCH ×2 (08:53→21:33)
[2022-01-22] MEDS: LIDOCAINE 5% PATCH TRANSDERM SCH (08:53)
[2022-01-22] MEDS: MICAFUNGIN 100 MG in SODIUM CHLORIDE 0.9% 100 ML IV SCH (08:55)
[2022-01-22] MEDS: [UNRECOGNIZED DRUG - OTHER] IV SCH (16:10)
[2022-01-22] MEDS: STERILE WATER IV SCH (16:10)
[2022-01-22] MEDS: MULTIVITAMIN IV SCH (16:10)
[2022-01-22] MEDS: AMINO ACIDS IV SCH (16:10)
[2022-01-23] MEDS: ALBUTEROL/IPRATROPIUM 3 ML NEB RESP TX SCH ×4 (00:25→19:33)
[2022-01-23] MEDS: INSULIN REGULAR 100 UNIT/ML SUBCUT SCH ×4 (00:35→17:35)
[2022-01-23] MEDS: HEPARIN 5,000 UNIT/1 ML VIAL SUBCUT SCH ×3 (00:53→17:00)
[2022-01-23] MEDS: ONDANSETRON 4 MG/2 ML VIAL IV SCH ×6 (02:46→18:00)
[2022-01-23] MEDS: METOCLOPRAMIDE 10 MG/2 ML VIAL IV SCH ×4 (03:21→21:18)
[2022-01-23 05:46] LABS: Basophils # 0.2 10*3/uL (0.0-0.2); Basophils % 0.8 % (0.0-0.8); Eosinophils # 0.5 10*3/uL (0.0-0.87); Eosinophils % 1.6 % (0.00-10.9); Hematocrit 32.1 VOL% (42.0-52.0); Hemoglobin 9.9 GM/DL (14.0-18.0); Immature Granulocytes % 4.6 %; Immature Granulocytes Absolute 1.28 #; Lymphocytes # 3.6 10*3/uL (1.4-4.0); Mean Corpuscular HGB Conc 30.8 GM/DL (32-36); Mean Corpuscular Volume 92.5 FL (87-102); Mean Platelet Volume 10.4 FL (9.6-12.0); Monocytes # 3.4 10*3/uL (0.11-0.8); Monocytes % 12.2 % (1.7-12.7); Neutrophils % 67.8 % (38.7-73.9); Red Blood Count 3.47 MC/CUMM (3.8-5.5); Red Cell Distribution Width 15.5 % (9.3-17.3); White Blood Count 27.9 T/CUMM (4-12)
[2022-01-23 05:51] LABS: Platelet Count 1243 T/CUMM (130-400)
[2022-01-23 06:03] LABS: Calcium 9.3 MG/DL (8.5-10.1); Osmolality,Calculated 274.5 MOS/KG (273-304); Potassium 3.8 MMOL/L (3.5-5.1)
[2022-01-23 06:12] LABS: Eosinophils 4 % (0-10); Lymphocytes 14 % (20-55); Myelocytes 2 %; Total Cells Counted 100
[2022-01-23 06:13] LABS: Hypochromia 2+; Platelet Estimate Increased
[2022-01-23 06:16] LABS: Target Cells Few
[2022-01-23 06:44] LABS: Albumin 2.1 G/DL (3.4-5.0); Bilirubin,Direct 1.75 MG/DL (0.0-0.20); Bilirubin,Indirect 0.7 MG/DL (0.0-1.0); Bilirubin,Total 2.4 MG/DL (0.20-1.00)
[2022-01-23] MEDS: MICAFUNGIN 100 MG in SODIUM CHLORIDE 0.9% 100 ML IV SCH (08:47)
[2022-01-23] MEDS: guaiFENesin/DM ER 600-30 MG TABLET PO PRN (08:48)
[2022-01-23] MEDS: BACILLUS COAGULANS CAPLET PO SCH (08:48)
[2022-01-23] MEDS: CHOLECALCIFEROL 1,000 UNIT TABLET PO SCH (08:49)
[2022-01-23] MEDS: CITALOPRAM 20 MG TABLET PO SCH (08:49)
[2022-01-23] MEDS: FERROUS SULFATE 325 MG TABLET PO SCH ×2 (08:49→21:17)
[2022-01-23] MEDS: OMEPRAZOLE ODT 20 MG TABLET PEG SCH ×2 (08:49→21:17)
[2022-01-23] MEDS: METOPROLOL TARTRATE 50 MG TABLET PO SCH ×2 (08:50→21:16)
[2022-01-23] MEDS: LIDOCAINE 5% PATCH TRANSDERM SCH (08:50)
[2022-01-23] MEDS ORDERED: PROMETHAZINE 25 MG/1 ML VIAL IM PRN (09:31)
[2022-01-23] MEDS: MAGNESIUM SULF RIDER 2 GM/50 ML PREMIX IV PRN (10:10)
[2022-01-23] MEDS: AMINO ACIDS IV SCH (17:00)
[2022-01-23] MEDS: MULTIVITAMIN IV SCH (17:00)
[2022-01-23] MEDS: STERILE WATER IV SCH (17:00)
[2022-01-23] MEDS: [UNRECOGNIZED DRUG - OTHER] IV SCH (17:00)
[2022-01-24] MEDS: ALBUTEROL/IPRATROPIUM 3 ML NEB RESP TX SCH ×4 (00:09→19:45)
[2022-01-24] MEDS: INSULIN REGULAR 100 UNIT/ML SUBCUT SCH ×4 (00:30→17:05)
[2022-01-24] MEDS: ONDANSETRON 4 MG/2 ML VIAL IV SCH ×7 (03:02→22:20)
[2022-01-24] MEDS: HEPARIN 5,000 UNIT/1 ML VIAL SUBCUT SCH ×3 (05:17→17:39)
[2022-01-24] MEDS: METOCLOPRAMIDE 10 MG/2 ML VIAL IV SCH ×4 (05:17→20:50)
[2022-01-24 05:34] LABS: Basophils # 0.3 10*3/uL (0.0-0.2); Basophils % 1.2 % (0.0-0.8); Eosinophils # 0.6 10*3/uL (0.0-0.87); Hematocrit 32.9 VOL% (42.0-52.0); Hemoglobin 10.4 GM/DL (14.0-18.0); Immature Granulocytes % 5.4 %; Immature Granulocytes Absolute 1.13 #; Lymphocytes # 2.9 10*3/uL (1.4-4.0); Lymphocytes % 13.9 % (21.2-54.2); Mean Corpuscular HGB Conc 31.6 GM/DL (32-36); Mean Corpuscular Volume 90.9 FL (87-102); Monocytes # 3.1 10*3/uL (0.11-0.8); Monocytes % 14.6 % (1.7-12.7); Neutrophils % 61.9 % (38.7-73.9); Red Blood Count 3.62 MC/CUMM (3.8-5.5); Red Cell Distribution Width 15.2 % (9.3-17.3)
[2022-01-24 05:36] LABS: Platelet Count 1138 T/CUMM (130-400)
[2022-01-24 05:53] LABS: Anisocytosis 1+; Eosinophils 2 % (0-10); Hypochromia 1+; Lymphocytes 14 % (20-55); Microcytosis 1+; Total Cells Counted 100
[2022-01-24 06:00] LABS: Albumin 2.2 G/DL (3.4-5.0); Bilirubin,Direct 2.04 MG/DL (0.0-0.20); Bilirubin,Indirect 0.7 MG/DL (0.0-1.0); Bilirubin,Total 2.7 MG/DL (0.20-1.00); Calcium 9.6 MG/DL (8.5-10.1); Osmolality,Calculated 271.7 MOS/KG (273-304); Potassium 5.2 MMOL/L (3.5-5.1); Total Protein 6.3 G/DL (6.4-8.2)
[2022-01-24] MEDS: BACILLUS COAGULANS CAPLET PO SCH (09:25)
[2022-01-24] MEDS: FERROUS SULFATE 325 MG TABLET PO SCH ×2 (09:26→20:50)
[2022-01-24] MEDS: METOPROLOL TARTRATE 50 MG TABLET PO SCH ×2 (09:26→20:50)
[2022-01-24] MEDS: CITALOPRAM 20 MG TABLET PO SCH (09:26)
[2022-01-24] MEDS: CHOLECALCIFEROL 1,000 UNIT TABLET PO SCH (09:26)
[2022-01-24] MEDS: OMEPRAZOLE ODT 20 MG TABLET PEG SCH ×2 (09:28→20:50)
[2022-01-24] MEDS: LIDOCAINE 5% PATCH TRANSDERM SCH (09:28)
[2022-01-24] MEDS: MICAFUNGIN 100 MG in SODIUM CHLORIDE 0.9% 100 ML IV SCH (09:38)
[2022-01-24] MEDS: STERILE WATER IV SCH (17:39)
[2022-01-24] MEDS: [UNRECOGNIZED DRUG - OTHER] IV SCH (17:39)
[2022-01-24] MEDS: AMINO ACIDS IV SCH (17:39)
[2022-01-24] MEDS: MULTIVITAMIN IV SCH (17:39)
[2022-01-25] MEDS: INSULIN REGULAR 100 UNIT/ML SUBCUT SCH ×4 (00:21→17:16)
[2022-01-25] MEDS: HEPARIN 5,000 UNIT/1 ML VIAL SUBCUT SCH ×3 (00:22→16:34)
[2022-01-25] MEDS: ALBUTEROL/IPRATROPIUM 3 ML NEB RESP TX SCH ×4 (00:36→19:27)
[2022-01-25] MEDS: METOCLOPRAMIDE 10 MG/2 ML VIAL IV SCH ×4 (02:57→21:21)
[2022-01-25] MEDS: ONDANSETRON 4 MG/2 ML VIAL IV SCH ×6 (02:58→23:50)
[2022-01-25 05:20] LABS: Basophils # 0.3 10*3/uL (0.0-0.2); Basophils % 1.2 % (0.0-0.8); Eosinophils # 0.7 10*3/uL (0.0-0.87); Eosinophils % 3.4 % (0.00-10.9); Hematocrit 32.3 VOL% (42.0-52.0); Hemoglobin 10.2 GM/DL (14.0-18.0); Immature Granulocytes % 5.5 %; Immature Granulocytes Absolute 1.18 #; Lymphocytes # 2.6 10*3/uL (1.4-4.0); Lymphocytes % 12.2 % (21.2-54.2); Mean Corpuscular HGB Conc 31.6 GM/DL (32-36); Mean Corpuscular Volume 90.5 FL (87-102); Monocytes % 13.8 % (1.7-12.7); Neutrophils % 63.9 % (38.7-73.9); Red Blood Count 3.57 MC/CUMM (3.8-5.5); Red Cell Distribution Width 15.3 % (9.3-17.3); White Blood Count 21.6 T/CUMM (4-12)
[2022-01-25 05:24] LABS: Platelet Count 1146 T/CUMM (130-400)
[2022-01-25 05:42] LABS: Eosinophils 5 % (0-10); Hypochromia 1+; Lymphocytes 10 % (20-55); Microcytosis 1+; Total Cells Counted 100
[2022-01-25 05:43] LABS: Phosphorous 4.9 MG/DL (2.5-4.9)
[2022-01-25 05:47] LABS: Albumin 2.2 G/DL (3.4-5.0); Bilirubin,Total 2.7 MG/DL (0.20-1.00); Calcium 9.7 MG/DL (8.5-10.1); Osmolality,Calculated 274.5 MOS/KG (273-304); Potassium 4.1 MMOL/L (3.5-5.1); Total Protein 7.1 G/DL (6.4-8.2)
[2022-01-25] MEDS ORDERED: fentaNYL 100 MCG/2 ML VIAL ONE (09:58)
[2022-01-25] MEDS: CITALOPRAM 20 MG TABLET PO SCH (10:30)
[2022-01-25] MEDS: FERROUS SULFATE 325 MG TABLET PO SCH ×2 (10:30→21:21)
[2022-01-25] MEDS: BACILLUS COAGULANS CAPLET PO SCH (10:30)
[2022-01-25] MEDS: METOPROLOL TARTRATE 50 MG TABLET PO SCH ×2 (10:31→21:20)
[2022-01-25] MEDS: LIDOCAINE 5% PATCH TRANSDERM SCH (10:31)
[2022-01-25] MEDS: OMEPRAZOLE ODT 20 MG TABLET PEG SCH ×2 (10:32→21:20)
[2022-01-25] MEDS: CHOLECALCIFEROL 1,000 UNIT TABLET PO SCH (10:32)
[2022-01-25] MEDS: MICAFUNGIN 100 MG in SODIUM CHLORIDE 0.9% 100 ML IV SCH ×2 (10:32→16:29)
[2022-01-25] MEDS ORDERED: GLYCOPYRROLATE 0.4 MG/2 ML VIAL ONE (11:24)
[2022-01-25] MEDS ORDERED: ROCURONIUM 50 MG/5 ML VIAL IV ONE (11:24)
[2022-01-25] MEDS ORDERED: propofoL 200 MG/20 ML VIAL IV ONE (11:24)
[2022-01-25] MEDS ORDERED: HYDROmorphone 1 MG/1 ML SYRINGE ONE (11:53)
[2022-01-25] MEDS ORDERED: HYDROmorphone 1 MG/1 ML SYRINGE IV PRN (12:15)
[2022-01-25] MEDS ORDERED: ONDANSETRON 4 MG/2 ML VIAL IV PRN (12:15)
[2022-01-25] MEDS: MULTIVITAMIN IV SCH (16:23)
[2022-01-25] MEDS: STERILE WATER IV SCH (16:23)
[2022-01-25] MEDS: [UNRECOGNIZED DRUG - OTHER] IV SCH (16:23)
[2022-01-25] MEDS: AMINO ACIDS IV SCH (16:23)
[2022-01-26] MEDS: ALBUTEROL/IPRATROPIUM 3 ML NEB RESP TX SCH ×4 (00:39→19:18)
[2022-01-26] MEDS: INSULIN REGULAR 100 UNIT/ML SUBCUT SCH ×4 (01:36→19:55)
[2022-01-26] MEDS: HEPARIN 5,000 UNIT/1 ML VIAL SUBCUT SCH ×3 (02:26→17:19)
[2022-01-26] MEDS: ONDANSETRON 4 MG/2 ML VIAL IV SCH ×2 (04:23→07:59)
[2022-01-26] MEDS: METOCLOPRAMIDE 10 MG/2 ML VIAL IV SCH ×4 (04:23→20:45)
[2022-01-26 04:41] LABS: Basophils # 0.3 10*3/uL (0.0-0.2); Eosinophils # 0.6 10*3/uL (0.0-0.87); Eosinophils % 2.4 % (0.00-10.9); Hematocrit 30.6 VOL% (42.0-52.0); Hemoglobin 9.8 GM/DL (14.0-18.0); Immature Granulocytes % 4.3 %; Immature Granulocytes Absolute 1.07 #; Lymphocytes # 2.2 10*3/uL (1.4-4.0); Lymphocytes % 8.7 % (21.2-54.2); Mean Corpuscular Volume 90.5 FL (87-102); Mean Platelet Volume 9.7 FL (9.6-12.0); Monocytes # 2.9 10*3/uL (0.11-0.8); Monocytes % 11.7 % (1.7-12.7); Neutrophils % 71.9 % (38.7-73.9); Platelet Count 985 T/CUMM (130-400); Red Blood Count 3.38 MC/CUMM (3.8-5.5); Red Cell Distribution Width 15.6 % (9.3-17.3); White Blood Count 24.8 T/CUMM (4-12)
[2022-01-26 05:02] LABS: Acanthocytes Few; Band Neutrophils 1 % (0-10); Eosinophils 4 % (0-10); Hypochromia 1+; Lymphocytes 10 % (20-55); Microcytosis 1+; Target Cells Slight; Total Cells Counted 100
[2022-01-26 05:03] LABS: Albumin 2.1 G/DL (3.4-5.0); Anisocytosis 1+; Bilirubin,Total 2.6 MG/DL (0.20-1.00); Burr Cells Slight; Calcium 9.3 MG/DL (8.5-10.1); Osmolality,Calculated 273.5 MOS/KG (273-304); Potassium 4.4 MMOL/L (3.5-5.1); Total Protein 6.8 G/DL (6.4-8.2)
[2022-01-26] MEDS: BACILLUS COAGULANS CAPLET PO SCH (09:31)
[2022-01-26] MEDS: METOPROLOL TARTRATE 50 MG TABLET PO SCH ×2 (09:31→20:48)
[2022-01-26] MEDS: CHOLECALCIFEROL 1,000 UNIT TABLET PO SCH (09:32)
[2022-01-26] MEDS: CITALOPRAM 20 MG TABLET PO SCH (09:32)
[2022-01-26] MEDS: OMEPRAZOLE ODT 20 MG TABLET PEG SCH ×2 (09:32→20:46)
[2022-01-26] MEDS: FERROUS SULFATE 325 MG TABLET PO SCH ×2 (09:32→20:48)
[2022-01-26] MEDS: MICAFUNGIN 100 MG in SODIUM CHLORIDE 0.9% 100 ML IV SCH (09:50)
[2022-01-26] MEDS: LIDOCAINE 5% PATCH TRANSDERM SCH (10:41)
[2022-01-26] MEDS: ONDANSETRON ODT 4 MG TABLET PO SCH ×3 (12:15→20:46)
[2022-01-27] MEDS: INSULIN REGULAR 100 UNIT/ML SUBCUT SCH ×4 (00:02→19:20)
[2022-01-27] MEDS: ALBUTEROL/IPRATROPIUM 3 ML NEB RESP TX SCH ×4 (01:00→19:41)
[2022-01-27] MEDS: HEPARIN 5,000 UNIT/1 ML VIAL SUBCUT SCH ×3 (01:40→17:11)
[2022-01-27] MEDS: ONDANSETRON ODT 4 MG TABLET PO SCH ×6 (01:40→20:24)
[2022-01-27] MEDS: METOCLOPRAMIDE 10 MG/2 ML VIAL IV SCH ×4 (02:16→20:24)
[2022-01-27 05:29] LABS: Basophils # 0.2 10*3/uL (0.0-0.2); Basophils % 0.8 % (0.0-0.8); Eosinophils # 0.7 10*3/uL (0.0-0.87); Eosinophils % 3.2 % (0.00-10.9); Hematocrit 29.8 VOL% (42.0-52.0); Hemoglobin 9.5 GM/DL (14.0-18.0); Immature Granulocytes % 4.1 %; Immature Granulocytes Absolute 0.96 #; Lymphocytes # 2.8 10*3/uL (1.4-4.0); Lymphocytes % 12.1 % (21.2-54.2); Mean Corpuscular HGB Conc 31.9 GM/DL (32-36); Mean Corpuscular Volume 90.6 FL (87-102); Mean Platelet Volume 10.2 FL (9.6-12.0); Monocytes # 3.5 10*3/uL (0.11-0.8); Monocytes % 15.2 % (1.7-12.7); Neutrophils % 64.6 % (38.7-73.9); Platelet Count 912 T/CUMM (130-400); Red Blood Count 3.29 MC/CUMM (3.8-5.5); Red Cell Distribution Width 15.8 % (9.3-17.3); White Blood Count 23.2 T/CUMM (4-12)
[2022-01-27 05:51] LABS: Anisocytosis 1+; Band Neutrophils 1 % (0-10); Eosinophils 2 % (0-10); Hypochromia 1+; Lymphocytes 12 % (20-55); Microcytosis 1+; Total Cells Counted 100
[2022-01-27 05:52] LABS: Burr Cells Slight; Polychromasia Slight
[2022-01-27 05:55] LABS: Albumin 2.1 G/DL (3.4-5.0); Bilirubin,Total 2.1 MG/DL (0.20-1.00); Calcium 9.6 MG/DL (8.5-10.1); Osmolality,Calculated 271.5 MOS/KG (273-304); Phosphorous 3.7 MG/DL (2.5-4.9); Potassium 4.5 MMOL/L (3.5-5.1); Total Protein 6.7 G/DL (6.4-8.2)
[2022-01-27] MEDS: LIDOCAINE 5% PATCH TRANSDERM SCH (09:55)
[2022-01-27] MEDS: CITALOPRAM 20 MG TABLET PO SCH (09:58)
[2022-01-27] MEDS: METOPROLOL TARTRATE 50 MG TABLET PO SCH ×2 (09:58→20:24)
[2022-01-27] MEDS: BACILLUS COAGULANS CAPLET PO SCH (09:58)
[2022-01-27] MEDS: FERROUS SULFATE 325 MG TABLET PO SCH ×2 (09:58→20:24)
[2022-01-27] MEDS: CHOLECALCIFEROL 1,000 UNIT TABLET PO SCH (09:58)
[2022-01-27] MEDS: MICAFUNGIN 100 MG in SODIUM CHLORIDE 0.9% 100 ML IV SCH (10:11)
[2022-01-27] MEDS: OMEPRAZOLE ODT 20 MG TABLET PEG SCH ×2 (10:12→20:28)
[2022-01-28] MEDS: INSULIN REGULAR 100 UNIT/ML SUBCUT SCH ×4 (00:23→19:42)
[2022-01-28] MEDS: HEPARIN 5,000 UNIT/1 ML VIAL SUBCUT SCH ×3 (00:24→17:43)
[2022-01-28] MEDS: ONDANSETRON ODT 4 MG TABLET PO SCH ×3 (00:24→09:44)
[2022-01-28] MEDS: ALBUTEROL/IPRATROPIUM 3 ML NEB RESP TX SCH ×4 (01:14→19:00)
[2022-01-28] MEDS: METOCLOPRAMIDE 10 MG/2 ML VIAL IV SCH ×4 (03:28→21:01)
[2022-01-28 06:26] LABS: Basophils # 0.2 10*3/uL (0.0-0.2); Basophils % 0.8 % (0.0-0.8); Eosinophils # 0.9 10*3/uL (0.0-0.87); Eosinophils % 3.8 % (0.00-10.9); Hematocrit 28.9 VOL% (42.0-52.0); Hemoglobin 9.2 GM/DL (14.0-18.0); Immature Granulocytes % 3.9 %; Immature Granulocytes Absolute 0.97 #; Lymphocytes # 2.8 10*3/uL (1.4-4.0); Lymphocytes % 11.3 % (21.2-54.2); Mean Corpuscular HGB Conc 31.8 GM/DL (32-36); Mean Platelet Volume 10.5 FL (9.6-12.0); Monocytes # 3.7 10*3/uL (0.11-0.8); Monocytes % 14.9 % (1.7-12.7); Neutrophils % 65.3 % (38.7-73.9); Platelet Count 864 T/CUMM (130-400); Red Blood Count 3.21 MC/CUMM (3.8-5.5); Red Cell Distribution Width 15.9 % (9.3-17.3); White Blood Count 24.7 T/CUMM (4-12)
[2022-01-28 06:42] LABS: Bilirubin,Total 1.7 MG/DL (0.20-1.00); Osmolality,Calculated 272.4 MOS/KG (273-304); Potassium 3.9 MMOL/L (3.5-5.1); Total Protein 6.5 G/DL (6.4-8.2)
[2022-01-28 07:02] LABS: Acanthocytes Few; Burr Cells Slight; Eosinophils 5 % (0-10); Lymphocytes 8 % (20-55); Myelocytes 1 %; Target Cells Slight; Total Cells Counted 100
[2022-01-28 07:03] LABS: Hypochromia 1+; Microcytosis 1+
[2022-01-28] MEDS: FERROUS SULFATE 325 MG TABLET PO SCH ×3 (09:43→20:59)
[2022-01-28] MEDS: OMEPRAZOLE ODT 20 MG TABLET PEG SCH ×2 (09:44→22:18)
[2022-01-28] MEDS: BACILLUS COAGULANS CAPLET PO SCH (09:45)
[2022-01-28] MEDS: METOPROLOL TARTRATE 50 MG TABLET PO SCH ×2 (09:45→21:01)
[2022-01-28] MEDS: CHOLECALCIFEROL 1,000 UNIT TABLET PO SCH (09:46)
[2022-01-28] MEDS: MICAFUNGIN 100 MG in SODIUM CHLORIDE 0.9% 100 ML IV SCH (09:49)
[2022-01-28] MEDS: BISACODYL 5 MG TABLET PO PRN (10:00)
[2022-01-28] MEDS ORDERED: ONDANSETRON ODT 4 MG TABLET PO PRN (10:07)
[2022-01-28] MEDS: CITALOPRAM 20 MG TABLET PO SCH (10:41)
[2022-01-28] MEDS: LIDOCAINE 5% PATCH TRANSDERM SCH (12:13)
[2022-01-29] MEDS: INSULIN REGULAR 100 UNIT/ML SUBCUT SCH ×2 (00:25→06:06)
[2022-01-29] MEDS: HEPARIN 5,000 UNIT/1 ML VIAL SUBCUT SCH ×3 (01:08→18:01)
[2022-01-29] MEDS: METOCLOPRAMIDE 10 MG/2 ML VIAL IV SCH ×4 (03:20→20:35)
[2022-01-29 06:17] LABS: Basophils # 0.2 10*3/uL (0.0-0.2); Basophils % 1.1 % (0.0-0.8); Eosinophils # 1.2 10*3/uL (0.0-0.87); Eosinophils % 5.1 % (0.00-10.9); Hematocrit 29.8 VOL% (42.0-52.0); Hemoglobin 9.4 GM/DL (14.0-18.0); Immature Granulocytes % 4.1 %; Immature Granulocytes Absolute 0.93 #; Lymphocytes # 2.8 10*3/uL (1.4-4.0); Lymphocytes % 12.4 % (21.2-54.2); Mean Corpuscular HGB Conc 31.5 GM/DL (32-36); Mean Corpuscular Volume 90.3 FL (87-102); Mean Platelet Volume 10.4 FL (9.6-12.0); Monocytes # 3.1 10*3/uL (0.11-0.8); Monocytes % 13.7 % (1.7-12.7); Neutrophils % 63.6 % (38.7-73.9); Platelet Count 915 T/CUMM (130-400); Red Cell Distribution Width 15.9 % (9.3-17.3); White Blood Count 22.6 T/CUMM (4-12)
[2022-01-29 06:33] LABS: Bilirubin,Total 1.6 MG/DL (0.20-1.00); Calcium 9.5 MG/DL (8.5-10.1); Osmolality,Calculated 274.4 MOS/KG (273-304); Potassium 4.3 MMOL/L (3.5-5.1); Total Protein 6.7 G/DL (6.4-8.2)
[2022-01-29 07:06] LABS: Eosinophils 4 % (0-10); Lymphocytes 14 % (20-55); Platelet Estimate Increased; Total Cells Counted 100
[2022-01-29] MEDS: ALBUTEROL/IPRATROPIUM 3 ML NEB RESP TX SCH ×4 (07:20→19:00)
[2022-01-29] MEDS: METOPROLOL TARTRATE 50 MG TABLET PO SCH ×2 (08:18→20:36)
[2022-01-29] MEDS: BISACODYL 5 MG TABLET PO PRN (08:18)
[2022-01-29] MEDS: FERROUS SULFATE 325 MG TABLET PO SCH ×2 (08:19→20:35)
[2022-01-29] MEDS: OMEPRAZOLE ODT 20 MG TABLET PEG SCH ×2 (08:19→20:35)
[2022-01-29] MEDS: CITALOPRAM 20 MG TABLET PO SCH (08:19)
[2022-01-29] MEDS: CHOLECALCIFEROL 1,000 UNIT TABLET PO SCH (08:19)
[2022-01-29] MEDS: BACILLUS COAGULANS CAPLET PO SCH (08:19)
[2022-01-29] MEDS: LIDOCAINE 5% PATCH TRANSDERM SCH (08:20)
[2022-01-29] MEDS: MICAFUNGIN 100 MG in SODIUM CHLORIDE 0.9% 100 ML IV SCH (08:26)
[2022-01-30] MEDS: HEPARIN 5,000 UNIT/1 ML VIAL SUBCUT SCH ×3 (01:16→16:29)
[2022-01-30] MEDS: METOCLOPRAMIDE 10 MG/2 ML VIAL IV SCH ×4 (03:30→21:37)
[2022-01-30 05:11] LABS: Basophils # 0.2 10*3/uL (0.0-0.2); Eosinophils # 1.2 10*3/uL (0.0-0.87); Eosinophils % 5.6 % (0.00-10.9); Hematocrit 28.8 VOL% (42.0-52.0); Hemoglobin 9.3 GM/DL (14.0-18.0); Immature Granulocytes % 3.5 %; Immature Granulocytes Absolute 0.73 #; Lymphocytes # 2.7 10*3/uL (1.4-4.0); Mean Corpuscular HGB Conc 32.3 GM/DL (32-36); Mean Corpuscular Volume 89.2 FL (87-102); Mean Platelet Volume 10.4 FL (9.6-12.0); Monocytes # 2.9 10*3/uL (0.11-0.8); Monocytes % 13.7 % (1.7-12.7); Neutrophils % 63.2 % (38.7-73.9); Platelet Count 809 T/CUMM (130-400); Red Blood Count 3.23 MC/CUMM (3.8-5.5); Red Cell Distribution Width 16.1 % (9.3-17.3); White Blood Count 20.9 T/CUMM (4-12)
[2022-01-30 05:37] LABS: Albumin 1.9 G/DL (3.4-5.0); Bilirubin,Total 1.3 MG/DL (0.20-1.00); Calcium 9.1 MG/DL (8.5-10.1); Osmolality,Calculated 266.9 MOS/KG (273-304); Potassium 4.8 MMOL/L (3.5-5.1); Total Protein 6.6 G/DL (6.4-8.2)
[2022-01-30 05:42] LABS: Anisocytosis 1+; Band Neutrophils 2 % (0-10); Burr Cells Few; Eosinophils 9 % (0-10); Lymphocytes 14 % (20-55); Platelet Estimate Increased; Total Cells Counted 100
[2022-01-30 05:43] LABS: Hypochromia Slight; Macrocytosis Slight
[2022-01-30] MEDS: ALBUTEROL/IPRATROPIUM 3 ML NEB RESP TX SCH ×4 (07:06→19:02)
[2022-01-30] MEDS: FERROUS SULFATE 325 MG TABLET PO SCH ×2 (08:01→21:44)
[2022-01-30] MEDS: CITALOPRAM 20 MG TABLET PO SCH (08:01)
[2022-01-30] MEDS: BACILLUS COAGULANS CAPLET PO SCH (08:01)
[2022-01-30] MEDS: METOPROLOL TARTRATE 50 MG TABLET PO SCH ×2 (08:02→21:37)
[2022-01-30] MEDS: LIDOCAINE 5% PATCH TRANSDERM SCH (08:02)
[2022-01-30] MEDS: CHOLECALCIFEROL 5,000 UNIT TABLET PO SCH (08:04)
[2022-01-30] MEDS: MICAFUNGIN 100 MG in SODIUM CHLORIDE 0.9% 100 ML IV SCH (10:03)
[2022-01-30] MEDS: OMEPRAZOLE ODT 20 MG TABLET PEG SCH ×2 (10:03→21:37)
[2022-01-30] MEDS: MAGNESIUM SULF RIDER 2 GM/50 ML PREMIX IV PRN (14:49)
[2022-01-31] MEDS: HEPARIN 5,000 UNIT/1 ML VIAL SUBCUT SCH ×2 (00:47→10:25)
[2022-01-31] MEDS: ALBUTEROL/IPRATROPIUM 3 ML NEB RESP TX SCH ×2 (00:55→07:38)
[2022-01-31] MEDS: METOCLOPRAMIDE 10 MG/2 ML VIAL IV SCH ×2 (03:55→10:38)
[2022-01-31 05:18] LABS: Basophils # 0.2 10*3/uL (0.0-0.2); Basophils % 0.8 % (0.0-0.8); Eosinophils # 0.9 10*3/uL (0.0-0.87); Eosinophils % 4.7 % (0.00-10.9); Hematocrit 30.7 VOL% (42.0-52.0); Hemoglobin 9.8 GM/DL (14.0-18.0); Immature Granulocytes % 3.4 %; Immature Granulocytes Absolute 0.64 #; Lymphocytes # 2.3 10*3/uL (1.4-4.0); Lymphocytes % 11.9 % (21.2-54.2); Mean Corpuscular HGB Conc 31.9 GM/DL (32-36); Mean Corpuscular Volume 89.2 FL (87-102); Monocytes # 2.8 10*3/uL (0.11-0.8); Monocytes % 14.6 % (1.7-12.7); Neutrophils % 64.6 % (38.7-73.9); Platelet Count 909 T/CUMM (130-400); Red Blood Count 3.44 MC/CUMM (3.8-5.5); Red Cell Distribution Width 16.3 % (9.3-17.3); White Blood Count 19.1 T/CUMM (4-12)
[2022-01-31 05:39] LABS: Eosinophils 2 % (0-10); Lymphocytes 10 % (20-55); Platelet Estimate Increased; Total Cells Counted 100
[2022-01-31 05:40] LABS: Giant Platelets Few; Hypochromia Slight; Microcytosis Slight
[2022-01-31 05:53] LABS: Albumin 2.1 G/DL (3.4-5.0); Bilirubin,Total 1.2 MG/DL (0.20-1.00); Calcium 9.2 MG/DL (8.5-10.1); Osmolality,Calculated 274.4 MOS/KG (273-304); Potassium 4.4 MMOL/L (3.5-5.1); Total Protein 6.9 G/DL (6.4-8.2)
[2022-01-31] MEDS: CITALOPRAM 20 MG TABLET PO SCH (10:24)
[2022-01-31] MEDS: LIDOCAINE 5% PATCH TRANSDERM SCH (10:25)
[2022-01-31] MEDS: OMEPRAZOLE ODT 20 MG TABLET PEG SCH (10:26)
[2022-01-31] MEDS: MICAFUNGIN 100 MG in SODIUM CHLORIDE 0.9% 100 ML IV SCH (10:26)
[2022-01-31] MEDS: METOPROLOL TARTRATE 50 MG TABLET PO SCH (10:37)
[2022-01-31] MEDS: BACILLUS COAGULANS CAPLET PO SCH (10:37)
[2022-01-31] MEDS: FERROUS SULFATE 325 MG TABLET PO SCH (10:38)
[2022-01-31] MEDS: CHOLECALCIFEROL 5,000 UNIT TABLET PO SCH (10:38)
[2022-01-31 12:36] VITALS: BP 150/80
== END 2022-01-31 12:35 | disposition home health service (06) | DRG 326 ==
LOC: N.EDINP 20:35 → N.ED 20:35 → SUATTDRO 12-22 00:15 → N.3E 12-22 02:08 → SUATTDRO 12-22 10:24 → N.ICU 12-22 15:00 → N.5E 01-05 15:56
PROVIDERS: ADMIT Internal Medicine Geriatric Medicine; ATTEND Internal Medicine
PROC: IRAGMES (2021-12-23 10:20)

== ENCOUNTER 2022-02-15 15:36 | Observation (INO) ==
[2022-02-15 16:37] LABS: Basophils # 0.2 10*3/uL (0.0-0.2); Basophils % 1.1 % (0.0-0.8); Eosinophils # 0.7 10*3/uL (0.0-0.87); Eosinophils % 4.5 % (0.00-10.9); Hematocrit 33.6 VOL% (42.0-52.0); Hemoglobin 10.9 GM/DL (14.0-18.0); Immature Granulocytes % 0.9 %; Immature Granulocytes Absolute 0.15 #; Lymphocytes # 3.1 10*3/uL (1.4-4.0); Lymphocytes % 19.6 % (21.2-54.2); Mean Corpuscular HGB Conc 32.4 GM/DL (32-36); Mean Corpuscular Volume 85.7 FL (87-102); Mean Platelet Volume 8.9 FL (9.6-12.0); Monocytes # 1.4 10*3/uL (0.11-0.8); Monocytes % 8.9 % (1.7-12.7); Platelet Count 852 T/CUMM (130-400); Red Blood Count 3.92 MC/CUMM (3.8-5.5); Red Cell Distribution Width 15.5 % (9.3-17.3); White Blood Count 15.9 T/CUMM (4-12)
[2022-02-15] MEDS ORDERED: SODIUM CHLORIDE 0.9% 1,000 ML IV STA ×3 (16:54→20:56)
[2022-02-15 17:10] LABS: Albumin 2.6 G/DL (3.4-5.0); Bilirubin,Total 0.9 MG/DL (0.20-1.00); Calcium 10.2 MG/DL (8.5-10.1); Osmolality,Calculated 267.5 MOS/KG (273-304); Potassium 4.3 MMOL/L (3.5-5.1); Total Protein 6.8 G/DL (6.4-8.2)
[2022-02-15 21:29] LABS: Hyaline Casts,Urine 1 /LPF (0-3); Mucus,Urine Occasional /LPF (Occasional); RBC,Urine <1 /HPF (0-4); Squamous Epithelial Cell,Urine Occasional /HPF (0-10)
[2022-02-15 21:30] LABS: Bilirubin,Urine Negative (Negative); Blood, Urine Negative (Negative); Glucose,Urine (UA) Negative (Negative); Ketones,Urine Negative (Negative); Nitrite,Urine Negative (Negative); Protein,Urine Negative (Negative); Urine Appearance Clear (Clear); Urine Color Yellow (Yellow); Urine Specific Gravity 1.015 (1.001-1.035); Urine Urobilinogen 0.2 eU/dL (<2.0); Urine pH 5.5 (4.5-8.0)
[2022-02-15] MEDS ORDERED: GLUCAGON 1 MG VIAL IM PRN (23:35)
[2022-02-15] MEDS ORDERED: MORPHINE 2 MG/1 ML SYRINGE IV PRN (23:35)
[2022-02-15] MEDS ORDERED: ONDANSETRON 4 MG/2 ML VIAL IV PRN (23:35)
[2022-02-15] MEDS ORDERED: guaiFENesin/DM ER 600-30 MG TABLET PO PRN (23:35)
[2022-02-15] MEDS ORDERED: ZALEPLON 5 MG CAPSULE PO PRN (23:35)
[2022-02-15] MEDS ORDERED: ACETAMINOPHEN 325 MG TABLET PO PRN (23:35)
[2022-02-15] MEDS ORDERED: diphenhydrAMINE CAP 25 MG CAPSULE PO PRN (23:35)
[2022-02-15] MEDS ORDERED: DEXTROSE 10% 250 ML BAG IV PRN (23:35)
[2022-02-15] MEDS ORDERED: NICOTINE 21 MG/24 HR PATCH TRANSDERM PRN (23:35)
[2022-02-16] MEDS ORDERED: MIDODRINE 2.5 MG TABLET PO ONE (00:33)
[2022-02-16] MEDS: DEXT 5% NACL 0.9% KCL 20 MEQ 20 MEQ/1,000 ML BAG IV SCH ×2 (00:33→14:33)
[2022-02-16 05:30] LABS: Basophils # 0.1 10*3/uL (0.0-0.2); Basophils % 1.1 % (0.0-0.8); Eosinophils # 1.1 10*3/uL (0.0-0.87); Eosinophils % 8.1 % (0.00-10.9); Immature Granulocytes Absolute 0.13 #; Lymphocytes # 4.1 10*3/uL (1.4-4.0); Lymphocytes % 31.1 % (21.2-54.2); Mean Corpuscular HGB Conc 32.1 GM/DL (32-36); Mean Corpuscular Volume 86.7 FL (87-102); Mean Platelet Volume 9.4 FL (9.6-12.0); Monocytes # 1.4 10*3/uL (0.11-0.8); Neutrophils % 47.7 % (38.7-73.9); Platelet Count 720 T/CUMM (130-400); Red Blood Count 3.23 MC/CUMM (3.8-5.5); Red Cell Distribution Width 15.3 % (9.3-17.3)
[2022-02-16 05:50] LABS: Calcium 8.9 MG/DL (8.5-10.1); Osmolality,Calculated 276.5 MOS/KG (273-304); Potassium 3.9 MMOL/L (3.5-5.1)
[2022-02-16] MEDS ORDERED: ONDANSETRON ODT 4 MG TABLET PO PRN (08:12)
[2022-02-16] MEDS ORDERED: PANTOPRAZOLE 40 MG VIAL IV SCH (09:00)
[2022-02-16] MEDS: METOPROLOL TARTRATE 50 MG TABLET PO SCH ×2 (09:26→21:24)
[2022-02-16] MEDS: PANTOPRAZOLE 40 MG TABLET PO SCH ×2 (09:26→21:24)
[2022-02-16] MEDS: CITALOPRAM 20 MG TABLET PO SCH (09:31)
[2022-02-16] MEDS: FERROUS SULFATE 325 MG TABLET PO SCH ×2 (09:31→21:25)
[2022-02-16] MEDS ORDERED: MAGNESIUM SULF RIDER 4 GM/100 ML PREMIX IV PRN (15:53)
[2022-02-16] MEDS ORDERED: MAGNESIUM SULF RIDER 2 GM/50 ML PREMIX IV PRN (15:53)
[2022-02-17] MEDS: DEXT 5% NACL 0.9% KCL 20 MEQ 20 MEQ/1,000 ML BAG IV SCH (04:03)
[2022-02-17 08:03] VITALS: BP 132/70
[2022-02-17] MEDS: FERROUS SULFATE 325 MG TABLET PO SCH (08:37)
[2022-02-17] MEDS: CITALOPRAM 20 MG TABLET PO SCH (08:37)
[2022-02-17] MEDS: PANTOPRAZOLE 40 MG TABLET PO SCH (08:37)
[2022-02-17] MEDS: METOPROLOL TARTRATE 50 MG TABLET PO SCH (08:37)
== END 2022-02-17 11:48 | disposition home or self-care (01) ==
LOC: EDUNIT# → EDBD → N.ED 15:36 → N.EDINP 23:35 → INTOOBSV 23:35 → N.5E 02-16 14:48
PROVIDERS: ADMIT Family Medicine; ATTEND Family Medicine

== ENCOUNTER 2022-03-16 16:58 | Inpatient (IN) ==
[2022-03-16] MEDS ORDERED: ONDANSETRON 4 MG/2 ML VIAL IV STA (17:30)
[2022-03-16] MEDS ORDERED: SODIUM CHLORIDE 0.9% 1,000 ML IV STA (17:30)
[2022-03-16 17:37] LABS: Basophils # 0.1 10*3/uL (0.0-0.2); Basophils % 0.3 % (0.0-0.8); Eosinophils # 0.1 10*3/uL (0.0-0.87); Eosinophils % 0.5 % (0.00-10.9); Hematocrit 37.9 VOL% (42.0-52.0); Hemoglobin 11.8 GM/DL (14.0-18.0); Immature Granulocytes % 0.6 %; Immature Granulocytes Absolute 0.13 #; Lymphocytes % 9.4 % (21.2-54.2); Mean Corpuscular HGB Conc 31.1 GM/DL (32-36); Mean Corpuscular Volume 86.7 FL (87-102); Mean Platelet Volume 9.4 FL (9.6-12.0); Monocytes # 0.9 10*3/uL (0.11-0.8); Monocytes % 4.1 % (1.7-12.7); Neutrophils % 85.1 % (38.7-73.9); Platelet Count 619 T/CUMM (130-400); Red Blood Count 4.37 MC/CUMM (3.8-5.5); Red Cell Distribution Width 15.1 % (9.3-17.3); White Blood Count 21.4 T/CUMM (4-12)
[2022-03-16 17:53] LABS: Albumin 3.1 G/DL (3.4-5.0); Bilirubin,Total 0.7 MG/DL (0.20-1.00); Calcium 10.1 MG/DL (8.5-10.1); Osmolality,Calculated 281.5 MOS/KG (273-304); Potassium 4.8 MMOL/L (3.5-5.1); Total Protein 7.8 G/DL (6.4-8.2)
[2022-03-16 18:19] LABS: Lymphocytes 14 % (20-55); Total Cells Counted 100
[2022-03-16 18:20] LABS: Acanthocytes Few; Burr Cells Slight; Schistocytes Slight; Target Cells Slight
[2022-03-16 18:21] LABS: Hypochromia Slight; Reactive Lymphocytes Slight; Spherocytes Slight
[2022-03-16 18:22] LABS: Platelet Estimate Increased
[2022-03-16] MEDS ORDERED: PANTOPRAZOLE 40 MG VIAL IV STA (18:29)
[2022-03-16] MEDS ORDERED: HYDROmorphone 1 MG/1 ML SYRINGE IV STA (18:29)
[2022-03-16 19:15] LABS: Mucus,Urine Occasional /LPF (Occasional); RBC,Urine 1 /HPF (0-4)
[2022-03-16 19:17] LABS: Bilirubin,Urine Negative (Negative); Blood, Urine Negative (Negative); Glucose,Urine (UA) Negative (Negative); Ketones,Urine Negative (Negative); Nitrite,Urine Negative (Negative); Protein,Urine Negative (Negative); Urine Appearance Clear (Clear); Urine Color Yellow (Yellow); Urine Specific Gravity 1.015 (1.001-1.035); Urine Urobilinogen 0.2 eU/dL (<2.0)
[2022-03-16] MEDS ORDERED: VANCOMYCIN INJ 1,000 MG in SODIUM CHLORIDE 0.9% 250 ML IV STA (21:09)
[2022-03-16] MEDS ORDERED: ONDANSETRON 4 MG/2 ML VIAL IV PRN (22:24)
[2022-03-16] MEDS ORDERED: ACETAMINOPHEN 325 MG TABLET PO PRN (22:24)
[2022-03-16] MEDS ORDERED: VANCOMYCIN 1,000 MG VIAL ONE (22:49)
[2022-03-16] MEDS ORDERED: VANCOMYCIN INJ 1,000 MG in SODIUM CHLORIDE 0.9% 250 ML IV SCH (23:00)
[2022-03-16] MEDS: SODIUM CHLORIDE 0.9% 1,000 ML IV SCH (23:20)
[2022-03-16] MEDS: metroNIDAZOLE INJ 500 MG/100 ML PREMIX IV SCH (23:58)
[2022-03-17] MEDS: HYDROmorphone 1 MG/1 ML SYRINGE IV PRN ×2 (05:27→15:12)
[2022-03-17 05:35] LABS: Basophils # 0.1 10*3/uL (0.0-0.2); Basophils % 0.2 % (0.0-0.8); Hematocrit 35.6 VOL% (42.0-52.0); Hemoglobin 10.9 GM/DL (14.0-18.0); Immature Granulocytes % 1.1 %; Immature Granulocytes Absolute 0.31 #; Lymphocytes # 1.8 10*3/uL (1.4-4.0); Lymphocytes % 6.2 % (21.2-54.2); Mean Corpuscular HGB Conc 30.6 GM/DL (32-36); Mean Corpuscular Volume 87.5 FL (87-102); Monocytes # 2.2 10*3/uL (0.11-0.8); Monocytes % 7.8 % (1.7-12.7); Neutrophils % 84.7 % (38.7-73.9); Platelet Count 564 T/CUMM (130-400); Red Blood Count 4.07 MC/CUMM (3.8-5.5); Red Cell Distribution Width 15.1 % (9.3-17.3); White Blood Count 28.4 T/CUMM (4-12)
[2022-03-17 05:51] LABS: Albumin 2.6 G/DL (3.4-5.0); Bilirubin,Total 0.8 MG/DL (0.20-1.00); Calcium 9.3 MG/DL (8.5-10.1); Osmolality,Calculated 280.4 MOS/KG (273-304); Potassium 4.3 MMOL/L (3.5-5.1); Risk Ratio 3.17; Total Protein 6.7 G/DL (6.4-8.2); VLDL Cholesterol 15.6 MG/DL
[2022-03-17 06:12] LABS: Eosinophils 1 % (0-10); Hypochromia Slight; Lymphocytes 7 % (20-55); Microcytosis Slight; Platelet Estimate Increased; Total Cells Counted 100
[2022-03-17] MEDS: metroNIDAZOLE INJ 500 MG/100 ML PREMIX IV SCH (06:12)
[2022-03-17] MEDS: DOCUSATE SODIUM 100 MG CAPSULE PO SCH ×2 (09:16→20:40)
[2022-03-17] MEDS: PANTOPRAZOLE 40 MG VIAL IV SCH (09:17)
[2022-03-17] MEDS: SODIUM CHLORIDE 0.9% 1,000 ML IV SCH ×2 (09:23→16:21)
[2022-03-17] MEDS: METOPROLOL TARTRATE 50 MG TABLET PO SCH (20:39)
[2022-03-18] MEDS: SODIUM CHLORIDE 0.9% 1,000 ML IV SCH ×3 (00:45→21:20)
[2022-03-18 06:44] LABS: Albumin 2.1 G/DL (3.4-5.0); Bilirubin,Direct 0.3 MG/DL (0.0-0.20); Bilirubin,Indirect 0.5 MG/DL (0.0-1.0); Bilirubin,Total 0.8 MG/DL (0.20-1.00); Total Protein 5.9 G/DL (6.4-8.2)
[2022-03-18] MEDS: DOCUSATE SODIUM 100 MG CAPSULE PO SCH ×2 (08:32→20:59)
[2022-03-18] MEDS: METOPROLOL TARTRATE 50 MG TABLET PO SCH ×2 (08:32→20:59)
[2022-03-18] MEDS: PANTOPRAZOLE 40 MG VIAL IV SCH (08:33)
[2022-03-18] MEDS: HYDROmorphone 1 MG/1 ML SYRINGE IV PRN (21:30)
[2022-03-19] MEDS: SODIUM CHLORIDE 0.9% 1,000 ML IV SCH ×2 (05:29→09:42)
[2022-03-19] MEDS: METOPROLOL TARTRATE 50 MG TABLET PO SCH ×2 (08:38→21:17)
[2022-03-19] MEDS: PANTOPRAZOLE 40 MG VIAL IV SCH (08:38)
[2022-03-19] MEDS: DOCUSATE SODIUM 100 MG CAPSULE PO SCH ×2 (08:38→21:17)
[2022-03-20] MEDS: METOPROLOL TARTRATE 50 MG TABLET PO SCH (08:18)
[2022-03-20] MEDS: PANTOPRAZOLE 40 MG VIAL IV SCH (08:18)
[2022-03-20] MEDS: DOCUSATE SODIUM 100 MG CAPSULE PO SCH (08:18)
[2022-03-20 08:31] VITALS: BP 135/64
[2022-03-20] MEDS ORDERED: LINEZOLID 600 MG TABLET PO SCH (09:00)
== END 2022-03-20 10:00 | disposition home health service (06) | DRG 439 ==
LOC: N.EDINP 16:58 → N.ED 16:58 → N.CC 22:23 → N.3E 03-17 17:20 → UNDODISOB 03-20 10:00
PROVIDERS: ADMIT Family Medicine; ATTEND Family Medicine